=== PATIENT | female | born 2000 | race American Indian/Alaskan Native ===

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

== ENCOUNTER 2021-03-11 14:22 | Emergency (ER) | payer OTHER ==
--- NOTE | 2021-03-11 15:28 | Emergency Department Report ---
ED Shortness of Breath HPI - General Chief Complaint: Dyspnea/Respdistress Stated Complaint: LEFT BREAST PAIN/MARYANA Time Seen by Provider: 03/11/21 15:07 Source: patient Mode of arrival: Ambulatory Limitations: No Limitations - History of Present Illness Initial Comments: Patient presents with 1 to 2-week history of shortness of breath. She states that when she lies down, she has shortness of breath. She feels as though she cannot catch her breath. When she is upright, she does not have the symptoms. This only occurs when she lies down. She also states that when she lies down, she feels as though her heart stops beating. This is transient. When she sits up, she feels much better. There has been no cough or congestion. She has had no fevers or chills. There is no vomiting or diarrhea. She has had no recent travel. Patient denies pain or swelling in the legs. There has been no known exposure to coronavirus. Because of the symptoms, she came here for evaluation and treatment. She is never had lung issues before - Related Data Previous Rx's Medication Instructions Recorded Last Taken Type Ibuprofen [Motrin 800 MG tab] 800 mg PO Q8HR PRN #30 tablet 08/31/20 Unknown Rx Albuterol Sulfate [Proair 90 mcg IH QID #1 aer.pow.ba 03/11/21 Unknown Rx Respiclick] Allergies Allergy/AdvReac Type Severity Reaction Status Date / Time No Known Allergies Allergy Verified 03/11/21 14:25 ED Review of Systems ROS: Stated complaint: LEFT BREAST PAIN/MARYANA Other details as noted in HPI Comment: All other systems reviewed and negative Constitutional: denies: fever Eyes: denies: vision change ENT: denies: throat pain Respiratory: denies: cough Cardiovascular: as per HPI Endocrine: denies: unexplained weight loss Gastrointestinal: denies: abdominal pain Genitourinary: denies: dysuria Musculoskeletal: denies: back pain Skin: denies: rash Neurological: denies: headache Hematological/Lymphatic: denies: easy bruising ED Past Medical Hx - Past Medical History Hx Hypertension: Yes Additional medical history: HEART MUMUR - Family History Family history: hypertension - Social History Smoking Status: Never Smoker - Medications Home Medications: Home Medications Medication Instructions Recorded Confirmed Last Taken Type Ibuprofen [Motrin 800 MG tab] 800 mg PO Q8HR PRN #30 tablet 08/31/20 03/11/21 Unknown Rx Albuterol Sulfate [Proair 90 mcg IH QID #1 aer.pow.ba 03/11/21 Unknown Rx Respiclick] ED Physical Exam - General Limitations: No Limitations, Other ( pulse ox was noted and normal) General appearance: alert, in no apparent distress - Head Head exam: Present: atraumatic, normocephalic, normal inspection - Eye Eye exam: Present: normal appearance, EOMI. Absent: scleral icterus - ENT ENT exam: Present: normal exam, normal orophraynx, normal external ear exam - Neck Neck exam: Present: normal inspection. Absent: meningismus - Respiratory Respiratory exam: Present: normal lung sounds bilaterally. Absent: respiratory distress - Cardiovascular Cardiovascular Exam: Present: regular rate, normal rhythm - GI/Abdominal GI/Abdominal exam: Present: soft. Absent: tenderness - Extremities Exam Extremities exam: Present: normal capillary refill. Absent: pedal edema, calf tenderness - Back Exam Back exam: Absent: CVA tenderness (R), CVA tenderness (L) - Neurological Exam Neurological exam: Present: alert, oriented X3, CN II-XII intact, normal gait. Absent: motor sensory deficit - Psychiatric Psychiatric exam: Present: normal affect, normal mood - Skin Skin exam: Present: warm, dry ED Course Vital Signs 03/11/21 03/11/21 03/11/21 14:24 17:17 17:18 Temperature 98.0 F 98.4 F Pulse Rate 71 66 Respiratory 18 12 12 Rate Blood Pressure 115/61 Blood Pressure 118/71 [Right] O2 Sat by Pulse 97 100 100 Oximetry - Reevaluation(s) Reevaluation #1: 03/11/21 15:28 EKG and chest x-ray were ordered. All records reviewed. Reevaluation #2: 03/11/21 17:21 Chest x-ray was noted. Patient was discharged. ED Medical Decision Making - Radiology Data Radiology results: report reviewed - Medical Decision Making Patient presents with orthopnea. She does not have evidence of CHF. There is no evidence of dyspnea at this time. Patient radiographically does not have pneumonia or coronavirus. There is no evidence of pulmonary edema. She does not have cardiomegaly. Etiology for her shortness of breath is not known. Regardless, she does not need admission. I am not concerned that this is a pulmonary embolism as this only occurs with the supine position. She was given inhaler to use symptomatically and referred to a PCP for recheck. Critical Care Time: No Critical care attestation.: If time is entered above; I have spent that time in minutes in the direct care of this critically ill patient, excluding procedure time. ED Disposition Clinical Impression: Shortness of breath Disposition: HOME / SELF CARE / HOMELESS Is pt being admited?: No Condition: Stable Instructions: Shortness of Breath, Adult, [id number] Additional Instructions: Use the inhaler. Drink plenty water. Return for problems. Follow-up with a regular doctor. If you do not have a primary physician, follow-up with the referral physician. Avoid cigarettes and other forms of smoking. Prescriptions: Albuterol Sulfate [Proair Respiclick] 90 mcg IH QID #1 aer.pow.ba Referrals: PRIMARY CAREMD [Referring] - 3-5 Days LOUISE RENDON MD [Staff Physician] - 3-5 Days
--- NOTE | 2021-03-11 16:10 | XRay Report ---
CHEST 2 VIEWS INDICATION / CLINICAL INFORMATION: sob. COMPARISON: 08/31/2020 FINDINGS: SUPPORT DEVICES: None. HEART / MEDIASTINUM: No significant abnormality. LUNGS / PLEURA: No significant pulmonary or pleural abnormality. No pneumothorax. ADDITIONAL FINDINGS: No significant additional findings. IMPRESSION: 1. No acute findings. Signer Name: Dat Jhaveri MD Signed: 03/11/2021 4:05 PM Workstation Name: [id number]
[2021-03-11 17:18] VITALS: BP 118/71
== END 2021-03-11 18:24 | disposition home or self-care (01) ==
LOC: MERGE 14:22 → ED 14:22
DX: R06.02 Shortness of breath (principal); I10 Essential (primary) hypertension
CPT/HCPCS: 71046; 99283

== ENCOUNTER 2021-03-26 14:29 | Emergency (ER) | payer OTHER | END 2021-03-26 19:00 | LOC: ED 14:29 | DX: R07.9 Chest pain, unspecified (principal); Z53.21 Procedure and treatment not carried out due to patient leaving prior to being seen by health care provider ==

== ENCOUNTER 2021-04-01 21:46 | Emergency (ER) | payer OTHER ==
[2021-04-01 22:57] VITALS: BP 148/76
--- NOTE | 2021-04-01 23:36 | XRay Report ---
CHEST 1 VIEW 04/01/2021 11:27 PM INDICATION / CLINICAL INFORMATION: DYSPNEA. COMPARISON: 03/11/21 FINDINGS: SUPPORT DEVICES: None. HEART / MEDIASTINUM: No significant abnormality. LUNGS / PLEURA: No significant pulmonary or pleural abnormality. No pneumothorax. ADDITIONAL FINDINGS: No significant additional findings. IMPRESSION: 1. No acute findings. No change. Signer Name: Nik Carter MD Signed: 04/01/2021 11:32 PM Workstation Name: [id number]
[2021-04-01 23:37] LABS: Basophils % (Auto) 0.4 % (0.0-1.8); Eosinophils # (Auto) 0.1 K/mm3 (0.0-0.4); Eosinophils % (Auto) 0.6 % (0.0-4.3); Hematocrit 38.6 % (30.3-42.9); Hemoglobin 12.5 gm/dl (10.1-14.3); Lymphocytes % (Auto) 34.6 % (13.4-35.0); Mean Corpuscular HGB Conc 32 % (30-34); Mean Corpuscular Volume 83 fl (79-97); Monocytes # (Auto) 0.5 K/mm3 (0.0-0.8); Monocytes % (Auto) 5.6 % (0.0-7.3); Platelet Count 315 K/mm3 (140-440); Red Blood Count 4.68 M/mm3 (3.65-5.03); Red Cell Distribution Width 13.7 % (13.2-15.2)
[2021-04-02 00:05] LABS: Alanine Aminotransferase 9 units/L (7-56); Albumin 4.4 g/dL (3.9-5); BUN/Creatinine Ratio 19; Blood Urea Nitrogen 15 mg/dL (7-17); Calcium 9.8 mg/dL (8.4-10.2); Hemolysis Index 6
--- NOTE | 2021-04-02 01:17 | Emergency Department Report ---
ED General Adult HPI - General Chief complaint: Dyspnea/Respdistress Stated complaint: LOSS OF APPETITE/ISSUES BREATHING Source: patient Mode of arrival: Ambulatory Limitations: No Limitations - History of Present Illness Initial comments: Patient is a nulliparous 20-year-old -Citizen Of [place] female with a history of chronic anxiety who presents to the ED with complaint of acute onset persistent intermittent shortness of breath, palpitations and generalized fatigue and lack of appetite for the last 1 week. Patient states that she just lost her father who about 7 days ago and since this happened she has had no appetite, and her symptoms have been worsening. Patient denies dizziness, syncope, chest pain, abdominal pain, nausea and vomiting, insomnia, anhedonia, suicidal or homicidal ideations, cough, fever and chills. MD Complaint: shortness of breath; chest tightness -: Sudden, days(s) (5) Location: chest Radiation: non-radiation Severity scale (0 -10): 0 Quality: dull Improves with: none Worsens with: none Associated Symptoms: denies other symptoms, shortness of breath. denies: confusion, chest pain, cough, diaphoresis, fever/chills, headaches, loss of appetite, malaise, nausea/vomiting, rash, syncope, weakness Treatments Prior to Arrival: none - Related Data Previous Rx's Medication Instructions Recorded Last Taken Type Naproxen [Naprosyn] 375 mg PO BID #7 tablet 07/05/20 Unknown Rx hydrOXYzine PAMOATE [Vistaril] 25 mg PO Q6HR PRN #30 capsule 04/02/21 Unknown Rx Allergies Allergy/AdvReac Type Severity Reaction Status Date / Time No Known Allergies Allergy Unverified 08/20/17 13:46 ED Review of Systems ROS: Stated complaint: LOSS OF APPETITE/ISSUES BREATHING Other details as noted in HPI Constitutional: denies: chills, fever Eyes: denies: eye pain, eye discharge, vision change ENT: denies: ear pain, throat pain Respiratory: shortness of breath. denies: cough, wheezing Cardiovascular: denies: chest pain, palpitations Endocrine: no symptoms reported Gastrointestinal: denies: abdominal pain, nausea, vomiting, diarrhea Genitourinary: denies: urgency, dysuria, discharge Musculoskeletal: denies: back pain, joint swelling, arthralgia Skin: denies: rash, lesions Neurological: denies: headache, weakness, paresthesias Psychiatric: anxiety. 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 - Surgical History Past Surgical History?: Yes Additional Surgical History: Lt knee - Social History Smoking Status: Current Every Day Smoker Substance Use Type: Alcohol, Marijuana - Medications Home Medications: Home Medications Medication Instructions Recorded Confirmed Last Taken Type Naproxen [Naprosyn] 375 mg PO BID #7 tablet 07/05/20 Unknown Rx hydrOXYzine PAMOATE [Vistaril] 25 mg PO Q6HR PRN #30 capsule 04/02/21 Unknown Rx ED Physical Exam - General Limitations: No Limitations General appearance: alert, in no apparent distress - Head Head exam: Present: atraumatic, normocephalic, normal inspection - Eye Eye exam: Present: normal appearance, PERRL, EOMI Pupils: Present: normal accommodation - ENT ENT exam: Present: normal exam, normal orophraynx, mucous membranes moist, TM's normal bilaterally, normal external ear exam - Neck Neck exam: Present: normal inspection, full ROM - Respiratory Respiratory exam: Present: normal lung sounds bilaterally. Absent: respiratory distress, wheezes, rales, rhonchi, chest wall tenderness, accessory muscle use, decreased breath sounds, prolonged expiratory - Cardiovascular Cardiovascular Exam: Present: regular rate, normal rhythm, normal heart sounds. Absent: systolic murmur, diastolic murmur, rubs, gallop - GI/Abdominal GI/Abdominal exam: Present: soft, normal bowel sounds. Absent: tenderness, guarding, rebound, hyperactive bowel sounds, hypoactive bowel sounds - Extremities Exam Extremities exam: Present: normal inspection, full ROM, normal capillary refill - Back Exam Back exam: Present: normal inspection, full ROM. Absent: tenderness, CVA tenderness (R), CVA tenderness (L), muscle spasm, paraspinal tenderness - Neurological Exam Neurological exam: Present: alert, oriented X3, CN II-XII intact, normal gait, reflexes normal - Psychiatric Psychiatric exam: Present: normal affect, normal mood - Skin Skin exam: Present: warm, dry, intact, normal color. Absent: rash ED Course Vital Signs 04/01/21 22:53 Temperature 98.7 F Pulse Rate 84 Respiratory 16 Rate Blood Pressure 148/76 [Right] O2 Sat by Pulse 100 Oximetry ED Medical Decision Making - Lab Data Result diagrams: 04/01/21 23:15 04/01/21 23:15 - Radiology Data Radiology results: report reviewed, image reviewed [facility] [address] [place] [address] XRay Report Signed Patient: PINKY GÓMEZ MR#: [id number] 9 : 2000 Acct:[id number] Age/Sex: 20 / F ADM Date: 04/01/21 Loc: ED Attending Dr: Ordering Physician: JONO BLISS Date of Service: 04/01/21 Procedure(s): XR chest 1V ap Accession Number(s): [id number] cc: JONO BLISS Fluoro Time In Minutes: CHEST 1 VIEW 04/01/2021 11:27 PM INDICATION / CLINICAL INFORMATION: DYSPNEA. COMPARISON: 03/11/21 FINDINGS: SUPPORT DEVICES: None. HEART / MEDIASTINUM: No significant abnormality. LUNGS / PLEURA: No significant pulmonary or pleural abnormality. No pneumothorax. ADDITIONAL FINDINGS: No significant additional findings. IMPRESSION: 1. No acute findings. No change. Signer Name: Nik Carter MD Signed: 04/01/2021 11:32 PM Workstation Name: [id number] Transcribed By: DT Dictated By: Philippe Carter MD Electronically Authenticated By: Philippe Carter MD Signed Date/Time: 04/01/212331 DD/ 31 TD/TT: - Medical Decision Making This is a nulliparous 20-year-old -Citizen Of [place] female with a history of chronic anxiety who presents to the ED with complaint of acute onset persistent intermittent shortness of breath, palpitations and generalized fatigue and lack of appetite for the last 1 week. Patient states that she just lost her father who about 7 days ago and since this happened she has had no appetite, and her symptoms have been worsening. In the ED, patient is alert and oriented x3 and is not in any distress. Patient is hemodynamically stable. Chest x-ray showed no acute cardiopulmonary abnormalities or pneumonitis. Lab test results were reviewed and are all nonactionable. Based on the history and physical exam findings, the patient symptoms are likely due to anxiety following the tragic of her parent. Patient was therefore discharged home on a prescription of Vistaril 25 mg every 8 hours as needed for anxiety and was advised to follow-up with her primary care physician in 5 to 7 days for reevaluation or return to the ED immediately if symptoms get worse. - Differential Diagnosis anxiety; pneumonia; bronchitis; ACS; PE; Critical care attestation.: If time is entered above; I have spent that time in minutes in the direct care of this critically ill patient, excluding procedure time. ED Disposition Clinical Impression: Shortness of breath, Anxiety as acute reaction to exceptional stress Disposition: HOME / SELF CARE / HOMELESS Is pt being admited?: No Does the pt Need Aspirin: No Condition: Stable Instructions: Generalized Anxiety Disorder, Adult, Shortness of Breath, Adult, [id number] Additional Instructions: All lab test results were reviewed and are all nonactionable. Therefore take medications for anxiety as advised, drink plenty of fluids and follow-up with your primary care physician in 5 to 7 days for reevaluation. Return to the ED immediately if symptoms get worse. Prescriptions: hydrOXYzine PAMOATE [Vistaril] 25 mg PO Q6HR PRN #30 capsule PRN Reason: Anxiety Referrals: [facility] [Provider Group] - 3-5 Days Time of Disposition: 01:16 Print Language: LITHUANIAN
== END 2021-04-02 02:00 | disposition home or self-care (01) ==
LOC: ED 21:46
DX: F41.1 Generalized anxiety disorder (principal); F43.0 Acute stress reaction; R06.02 Shortness of breath; I10 Essential (primary) hypertension; E11.9 Type 2 diabetes mellitus without complications; F17.200 Nicotine dependence, unspecified, uncomplicated
CPT/HCPCS: 36415; 71045; 80053; 84443; 84484; 85025

== ENCOUNTER 2021-04-03 01:03 | Emergency (ER) | payer OTHER ==
[2021-04-03 02:38] LABS: Basophils # (Auto) 0.1 K/mm3 (0.0-0.1); Basophils % (Auto) 0.7 % (0.0-1.8); Eosinophils # (Auto) 0.1 K/mm3 (0.0-0.4); Eosinophils % (Auto) 0.8 % (0.0-4.3); Hematocrit 39.2 % (30.3-42.9); Hemoglobin 12.4 gm/dl (10.1-14.3); Lymphocytes # (Auto) 3.3 K/mm3 (1.2-5.4); Lymphocytes % (Auto) 41.8 % (13.4-35.0); Mean Corpuscular HGB Conc 32 % (30-34); Mean Corpuscular Volume 82 fl (79-97); Monocytes # (Auto) 0.5 K/mm3 (0.0-0.8); Monocytes % (Auto) 6.7 % (0.0-7.3); Platelet Count 311 K/mm3 (140-440); Red Cell Distribution Width 13.9 % (13.2-15.2)
--- NOTE | 2021-04-03 02:58 | XRay Report ---
CHEST 2 VIEWS INDICATION / CLINICAL INFORMATION: chest pain. COMPARISON: 04/01/21 FINDINGS: SUPPORT DEVICES: None. HEART / MEDIASTINUM: No significant abnormality. LUNGS / PLEURA: No significant pulmonary or pleural abnormality. No pneumothorax. ADDITIONAL FINDINGS: No significant additional findings. IMPRESSION: 1. No acute findings. No change. Signer Name: Nik Carter MD Signed: 04/03/2021 2:54 AM Workstation Name: [id number]
--- NOTE | 2021-04-03 03:27 | Emergency Department Report ---
ED General Adult HPI - General Chief complaint: Arrhythmia/Palpitations Stated complaint: NOT SLEEPING HEART PALPATATIONS HBP Time Seen by Provider: 04/03/21 01:57 Source: patient Mode of arrival: Ambulatory Limitations: No Limitations - History of Present Illness Initial comments: 20-year-old -[place] female patient presents with complaints of intermittent palpitations x8 days. Patient states the palpitations began the same day her father from colon cancer. She reports they seem to worsen at night when lying down and that she is unable to sleep. She describes the palpitations as her heart racing and beating irregularly. She reports past medical history of hypertension, but denies any other medical issues. No family history of heart disease per patient. She denies any chest pain, shortness of breath, cough, leg pain/swelling, hormone use, hemoptysis, history of DVT/PEs, or recent long travel/surgeries. No palpitations at this time per patient. She states this is happened in the past before when her aunt . She has not been diagnosed with anxiety per patient. Severity scale (0 -10): 2 - Related Data Previous Rx's Medication Instructions Recorded Last Taken Type Naproxen [Naprosyn] 375 mg PO BID #7 tablet 07/05/20 Unknown Rx hydrOXYzine PAMOATE [Vistaril] 25 mg PO Q6HR PRN #30 capsule 04/02/21 Unknown Rx hydrOXYzine PAMOATE [Vistaril] 25 - 50 mg PO QHS PRN #20 capsule 04/03/21 Unknown Rx Allergies Allergy/AdvReac Type Severity Reaction Status Date / Time No Known Allergies Allergy Unverified 08/20/17 13:46 ED Review of Systems ROS: Stated complaint: NOT SLEEPING HEART PALPATATIONS HBP Other details as noted in HPI Constitutional: denies: chills, fever, malaise Respiratory: denies: cough, shortness of breath Cardiovascular: palpitations. 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 - Surgical History Past Surgical History?: Yes Additional Surgical History: Lt knee - Social History Smoking Status: Current Every Day Smoker Substance Use Type: Alcohol, Marijuana - Medications Home Medications: Home Medications Medication Instructions Recorded Confirmed Last Taken Type Naproxen [Naprosyn] 375 mg PO BID #7 tablet 07/05/20 Unknown Rx hydrOXYzine PAMOATE [Vistaril] 25 mg PO Q6HR PRN #30 capsule 04/02/21 Unknown Rx hydrOXYzine PAMOATE [Vistaril] 25 - 50 mg PO QHS PRN #20 capsule 04/03/21 Unknown Rx ED Physical Exam - General Limitations: No Limitations General appearance: alert, in no apparent distress - Head Head exam: Present: atraumatic, normocephalic - Eye Eye exam: Present: normal appearance. Absent: scleral icterus - Neck Neck exam: Present: normal inspection - Respiratory Respiratory exam: Present: normal lung sounds bilaterally. Absent: respiratory distress, chest wall tenderness - Cardiovascular Cardiovascular Exam: Present: regular rate, normal rhythm. Absent: systolic murmur, diastolic murmur, rubs, gallop - Extremities Exam Extremities exam: Absent: calf tenderness (No swelling or pain noted to lower extremities bilaterally) - Neurological Exam Neurological exam: Present: alert, oriented X3 - Psychiatric Psychiatric exam: Present: normal affect, normal mood - Skin Skin exam: Present: warm, dry, intact, normal color. Absent: rash ED Course Vital Signs 04/03/21 04/03/21 04/03/21 01:09 01:10 03:44 Temperature 98.7 F 98.7 F Pulse Rate 73 90 76 Respiratory 16 16 Rate Blood Pressure 135/82 127/78 Blood Pressure 135/82 [Left] O2 Sat by Pulse 99 100 Oximetry 04/03/21 04/03/21 04:13 04:15 Temperature Pulse Rate 74 Respiratory Rate Blood Pressure 120/88 Blood Pressure [Left] O2 Sat by Pulse 100 Oximetry ED Medical Decision Making - Lab Data Result diagrams: 04/03/21 02:00 04/03/21 Unknown Lab Results 04/03/21 04/03/21 04/03/21 Range/Units 02:00 02:00 02:00 WBC 8.0 (4.5-11.0) K/mm3 RBC 4.80 (3.65-5.03) M/mm3 Hgb 12.4 (10.1-14.3) gm/dl Hct 39.2 (30.3-42.9) % MCV 82 (79-97) fl MCH 26 L (28-32) pg MCHC 32 (30-34) % RDW 13.9 (13.2-15.2) % Plt Count 311 (140-440) K/mm3 Lymph % (Auto) 41.8 H (13.4-35.0) % Coffee % (Auto) 6.7 (0.0-7.3) % Eos % (Auto) 0.8 (0.0-4.3) % Baso % (Auto) 0.7 (0.0-1.8) % Lymph # (Auto) 3.3 (1.2-5.4) K/mm3 Coffee # (Auto) 0.5 (0.0-0.8) K/mm3 Eos # (Auto) 0.1 (0.0-0.4) K/mm3 Baso # (Auto) 0.1 (0.0-0.1) K/mm3 Seg Neutrophils % 50.0 (40.0-70.0) % Seg Neutrophils # 4.0 (1.8-7.7) K/mm3 Sodium (137-145) mmol/L Potassium (3.6-5.0) mmol/L Chloride (98-107) mmol/L Carbon Dioxide (22-30) mmol/L Anion Gap mmol/L BUN (7-17) mg/dL Creatinine (0.6-1.2) mg/dL Estimated GFR ml/min BUN/Creatinine Ratio % Glucose (65-100) mg/dL Calcium (8.4-10.2) mg/dL Troponin T < 0.010 (0.00-0.029) ng/mL HCG, Qual Negative (Negative) 04/03/21 Range/Units Unknown WBC (4.5-11.0) K/mm3 RBC (3.65-5.03) M/mm3 Hgb (10.1-14.3) gm/dl Hct (30.3-42.9) % MCV (79-97) fl MCH (28-32) pg MCHC (30-34) % RDW (13.2-15.2) % Plt Count (140-440) K/mm3 Lymph % (Auto) (13.4-35.0) % Coffee % (Auto) (0.0-7.3) % Eos % (Auto) (0.0-4.3) % Baso % (Auto) (0.0-1.8) % Lymph # (Auto) (1.2-5.4) K/mm3 Coffee # (Auto) (0.0-0.8) K/mm3 Eos # (Auto) (0.0-0.4) K/mm3 Baso # (Auto) (0.0-0.1) K/mm3 Seg Neutrophils % (40.0-70.0) % Seg Neutrophils # (1.8-7.7) K/mm3 Sodium 135 L (137-145) mmol/L Potassium 4.0 (3.6-5.0) mmol/L Chloride 101.4 (98-107) mmol/L Carbon Dioxide 21 L (22-30) mmol/L Anion Gap 17 mmol/L BUN 18 H (7-17) mg/dL Creatinine 0.8 (0.6-1.2) mg/dL Estimated GFR > 60 ml/min BUN/Creatinine Ratio 23 % Glucose 93 (65-100) mg/dL Calcium 9.9 (8.4-10.2) mg/dL Troponin T (0.00-0.029) ng/mL HCG, Qual (Negative) - Radiology Data Radiology results: report reviewed CHEST 2 VIEWS INDICATION / CLINICAL INFORMATION: chest pain. COMPARISON: 04/01/21 FINDINGS: SUPPORT DEVICES: None. HEART / MEDIASTINUM: No significant abnormality. LUNGS / PLEURA: No significant pulmonary or pleural abnormality. No pneumothorax. ADDITIONAL FINDINGS: No significant additional findings. IMPRESSION: 1. No acute findings. No change. - Medical Decision Making 20-year-old -[place] female patient presents with complaints of intermittent palpitations x8 days. Patient states the palpitations began the same day her father from colon cancer. She reports they seem to worsen at night when lying down and that she is unable to sleep. She describes the palpitations as her heart racing and beating irregularly. She reports past medical history of hypertension, but denies any other medical issues. No family history of heart disease per patient. She denies any chest pain, shortness of breath, cough, leg pain/swelling, hormone use, hemoptysis, history of DVT/PEs, or recent long travel/surgeries. No palpitations at this time per patient. She states this is happened in the past before when her aunt . She has not been diagnosed with anxiety per patient. No acute abnormalities on CBC, chest x-ray, or EKG. CMP shows some dehydration - discussed importance of fluid resuscitation with water and Pedialyte with patient. Given history, symptoms possibly are due to anxiety with recent passing of her father. Will try anxiolytic medication at night as needed and have patient follow-up with her PCP for further evaluation within 3 to 5 days. Patient states she does currently follow with the PCP. She is well-appearing, her vitals are within normal limits, she is stable for discharge home. Discussed in detail signs and symptoms that should prompt immediate return to the emergency department with patient who verbalizes understanding. Critical care attestation.: If time is entered above; I have spent that time in minutes in the direct care of this critically ill patient, excluding procedure time. ED Disposition Clinical Impression: Palpitations, Dehydration Disposition: 01 HOME / SELF CARE / HOMELESS Is pt being admited?: No Condition: Stable Instructions: Premature Ventricular Contraction, Dehydration, Adult, Nstd-[id number], Palpitations, [id number] Prescriptions: hydrOXYzine PAMOATE [Vistaril] 25 - 50 mg PO QHS PRN #20 capsule PRN Reason: Anxiety Referrals: PRIMARY CARE, [Primary Care Provider] - 3-5 Days Forms: Work/School Release Form(ED)
[2021-04-03 03:46] LABS: BUN/Creatinine Ratio 23; Blood Urea Nitrogen 18 mg/dL (7-17); Calcium 9.9 mg/dL (8.4-10.2); Hemolysis Index 2
[2021-04-03 04:20] VITALS: BP 120/88
--- NOTE | 2021-04-03 11:28 | Electrocardiograph Report ---
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
== END 2021-04-03 04:20 | disposition home or self-care (01) ==
LOC: ED 01:03
DX: R00.2 Palpitations (principal); E86.0 Dehydration; F17.200 Nicotine dependence, unspecified, uncomplicated; F10.20 Alcohol dependence, uncomplicated; F12.90 Cannabis use, unspecified, uncomplicated; I10 Essential (primary) hypertension; E11.8 Type 2 diabetes mellitus with unspecified complications
CPT/HCPCS: 36415; 71046; 80048; 84484; 84703; 85025; 93005; 99283

== ENCOUNTER 2021-04-03 21:56 | Emergency (ER) | payer OTHER ==
[2021-04-03 23:05] VITALS: BP 135/82
--- NOTE | 2021-04-04 01:43 | Emergency Department Report ---
HPI - General Chief Complaint: Abdominal Pain Time Seen by Provider: 04/04/21 01:34 - HPI HPI: 20-year-old -[place] female presents to the emergency department with a complaint of a 2-day history of middle to upper abdominal pain, nausea without v omiting, decreased appetite, and early satiety. The patient was seen here yesterday with a complaint of a few days of palpitations since the passing of her father. She had a negative work-up including CBC, CMP and was diagnosed with some mild dehydration. Patient says that she has been drinking water constantly throughout the day. At that time she had said that the palpitations had been keeping her from getting sleep at night. Today she tells me that it is the current symptoms that have been keeping her from sleeping. She has a past medical history of hypertension. She follows with a primary care physician, Dr. Magy Cobb, but has not seen them regarding the symptoms. No recent travel or sick contacts at home. ED Past Medical Hx - Past Medical History Hx Hypertension: Yes Hx Diabetes: Yes Additional medical history: meth use. heart murmur - Surgical History Additional Surgical History: Lt knee - Social History Smoking Status: Current Every Day Smoker Substance Use Type: Alcohol, Marijuana - Medications Home Medications: Home Medications Medication Instructions Recorded Confirmed Last Taken Type Naproxen [Naprosyn] 375 mg PO BID #7 tablet 07/05/20 Unknown Rx hydrOXYzine PAMOATE [Vistaril] 25 mg PO Q6HR PRN #30 capsule 04/02/21 Unknown Rx hydrOXYzine PAMOATE [Vistaril] 25 - 50 mg PO QHS PRN #20 capsule 04/03/21 Unknown Rx Dicyclomine [Bentyl] 10 mg PO QID PRN #20 capsule 04/04/21 Unknown Rx ED Review of Systems ROS: Stated complaint: AB PAIN Other details as noted in HPI Comment: All other systems reviewed and negative Constitutional: denies: chills, fever Eyes: denies: eye pain, vision change ENT: denies: ear pain, throat pain Respiratory: denies: cough, shortness of breath Cardiovascular: denies: chest pain, edema Gastrointestinal: abdominal pain. denies: vomiting Genitourinary: denies: dysuria, hematuria Musculoskeletal: denies: back pain, arthralgia Skin: denies: rash, lesions Neurological: denies: headache, weakness Physical Exam - Physical Exam Vital Signs: Vital Signs 04/03/21 23:03 Temperature 98.2 F Pulse Rate 86 Respiratory 17 Rate Blood Pressure 135/82 [Right] O2 Sat by Pulse 100 Oximetry Physical Exam: GENERAL: The patient is well-developed well-nourished. HENT: Normocephalic. Atraumatic. Patient has moist mucous membranes. EYES: Extraocular motions are intact. NECK: Supple. Trachea is midline. CHEST/LUNGS: Clear to auscultation. There is no respiratory distress noted. HEART/CARDIOVASCULAR: Regular. There is no tachycardia. There is no murmur. ABDOMEN: Abdomen is soft. There is some upper abdominal tenderness to palpation. No guarding. Patient has normal bowel sounds. There is no abdominal distention. SKIN: Skin is warm and dry. NEURO: The patient is awake, alert, and oriented. The patient is cooperative. Normal speech. MUSCULOSKELETAL: There is no tenderness or deformity. There is no limitation range of motion. ED Course Vital Signs 04/03/21 23:03 Temperature 98.2 F Pulse Rate 86 Respiratory 17 Rate Blood Pressure 135/82 [Right] O2 Sat by Pulse 100 Oximetry ED Medical Decision Making - Lab Data Result diagrams: 04/04/21 02:38 Lab Results 04/04/21 04/04/21 04/04/21 Range/Units 02:38 02:38 Unknown Sodium 137 (137-145) mmol/L Potassium 3.9 (3.6-5.0) mmol/L Chloride 101.7 (98-107) mmol/L Carbon Dioxide 23 (22-30) mmol/L Anion Gap 16 mmol/L BUN 12 (7-17) mg/dL Creatinine 0.8 (0.6-1.2) mg/dL Estimated GFR > 60 ml/min BUN/Creatinine Ratio 15 % Glucose 79 (65-100) mg/dL Calcium 9.2 (8.4-10.2) mg/dL Total Bilirubin 0.60 (0.1-1.2) mg/dL AST 17 (5-40) units/L ALT 9 (7-56) units/L Alkaline Phosphatase 75 (35-129) units/L Total Protein 7.3 (6.3-8.2) g/dL Albumin 4.4 (3.9-5) g/dL Albumin/Globulin Ratio 1.5 % Lipase 26 (13-60) units/L Urine Color Yellow (Yellow) Urine Turbidity Clear (Clear) Urine pH 7.0 (5.0-7.0) Ur Specific [place] 1.010 (1.003-1.030) Urine Protein <15 mg/dl (Negative) mg/dL Urine Glucose (UA) Neg (Negative) mg/dL Urine Ketones Neg (Negative) mg/dL Urine Blood Neg (Negative) Urine Nitrite Neg (Negative) Urine Bilirubin Neg (Negative) Urine Urobilinogen 2.0 (<2.0) mg/dL Ur Leukocyte Esterase Neg (Negative) Urine WBC (Auto) 2.0 (0.0-6.0) /HPF Urine RBC (Auto) 1.0 (0.0-6.0) /HPF U Epithel Cells (Auto) 7.0 (0-13.0) /HPF - Radiology Data Radiology results: report reviewed, image reviewed interpreted by me: Abdominal x-ray shows nonspecific nonobstructive bowel gas. No free air. Chest x-ray does not show any acute process. There are no pleural effusions, obvious pneumonia and there is no pneumothorax. No widened mediastinum. ULTRASOUND ABDOMEN, LIMITED INDICATION / CLINICAL INFORMATION: Abd pain. COMPARISON: None available. FINDINGS: PANCREAS: Visualized portion shows no significant abnormality. LIVER: No significant abnormality. GALLBLADDER: Sli ghtly contracted. No stones or wall thickening. BILE DUCTS: No significant abnormality. Common bile duct measures 2.3 mm. FREE FLUID: None. ADDITIONAL FINDINGS: Visualized portions of right kidney appear normal. IMPRESSION: 1. No significant sonographic abnormality of the right upper quadrant. - Medical Decision Making This patient presents with a 2-day history of some upper abdominal pain. She has some decreased appetite and complains of the inability to sleep at night. There is some reproducible upper abdominal tenderness to palpation, but no guarding. The abdomen is soft, nondistended and nontoxic in appearance. Abdominal x-ray shows nonspecific nonobstructive bowel gas and no free air. Labs have been unremarkable including CMP, lipase and urinalysis. The patient was given some Bentyl and Zofran. She still complained of moderate abdominal pain so an ultrasound was done that did not show any evidence of cholelithiasis, cholecystitis, pancreatitis, or any other acute process in the right upper quadrant. Vital signs have been reassuring including being afebrile. The patient appears safe for discharge home at this time. She has good outpatient follow-up with primary care and has been given a referral for [facility]. She will return to the emergency department with any worsening of her symptoms or with any acute distress. Critical Care Time: No Critical care attestation.: If time is entered above; I have spent that time in minutes in the direct care of this critically ill patient, excluding procedure time. ED Disposition Clinical Impression: Decreased appetite Abdominal pain Qualifiers: Abdominal location: unspecified location Qualified Code(s): R10.9 - Unspecified abdominal pain Disposition: HOME / SELF CARE / HOMELESS Is pt being admited?: No Condition: Stable Instructions: Abdominal Pain (ED), Abdominal Pain, Adult Additional Instructions: Please follow-up with your primary care physician in the next few days. I have also given you a referral for a local gastroenterology group, [facility], to follow-up regarding your abdominal pains. Return to the emergency department with any worsening of your symptoms, new or concerning symptoms not addressed during this current emergency department visit, or with any acute distress. Prescriptions: Dicyclomine [Bentyl] 10 mg PO QID PRN #20 capsule PRN Reason: Pain , Severe (7-10) Referrals: PRIMARY CARE, [Primary Care Provider] - 3-5 Days [facility] [Provider Group] - 3-5 Days Time of Disposition: 05:44
--- NOTE | 2021-04-04 02:17 | XRay Report ---
ABDOMEN 3 VIEW(S) INDICATION / CLINICAL INFORMATION: Abd pain. COMPARISON: None available. FINDINGS: TUBES / LINES: None. BOWEL GAS PATTERN: No significant abnormality. FREE AIR / EXTRALUMINAL GAS: None seen. ADDITIONAL FINDINGS: No calcified urinary tract stones. Several calcified left pelvic phleboliths. CHEST: Visualized chest shows no significant abnormality. IMPRESSION: 1. No acute findings. Signer Name: Nik Carter MD Signed: 04/04/2021 2:12 AM Workstation Name: [id number]
[2021-04-04 02:41] LABS: Bilirubin,Urine NEG (Negative); Blood,Urine NEG (Negative); Color,Urine Yellow (Yellow); Protein,Urine <15 mg/dL mg/dL (Negative)
[2021-04-04] MEDS ORDERED: DICYCLOMINE 20 MG TAB PO ONE (03:12)
[2021-04-04] MEDS ORDERED: ONDANSETRON 4 MG ODT TAB PO ONE (03:12)
[2021-04-04 03:33] LABS: Alanine Aminotransferase 9 units/L (7-56); Albumin 4.4 g/dL (3.9-5); BUN/Creatinine Ratio 15; Blood Urea Nitrogen 12 mg/dL (7-17); Calcium 9.2 mg/dL (8.4-10.2); Hemolysis Index 5
--- NOTE | 2021-04-04 05:41 | Ultrasound Report ---
ULTRASOUND ABDOMEN, LIMITED INDICATION / CLINICAL INFORMATION: Abd pain. COMPARISON: None available. FINDINGS: PANCREAS: Visualized portion shows no significant abnormality. LIVER: No significant abnormality. GALLBLADDER: Slightly contracted. No stones or wall thickening. BILE DUCTS: No significant abnormality. Common bile duct measures 2.3 mm. FREE FLUID: None. ADDITIONAL FINDINGS: Visualized portions of right kidney appear normal. IMPRESSION: 1. No significant sonographic abnormality of the right upper quadrant. Signer Name: Nik Carter MD Signed: 04/04/2021 5:36 AM Workstation Name: [id number]
== END 2021-04-04 06:02 | disposition home or self-care (01) ==
LOC: ED 21:56
DX: R63.8 Other symptoms and signs concerning food and fluid intake (principal); R11.2 Nausea with vomiting, unspecified; I10 Essential (primary) hypertension; E11.9 Type 2 diabetes mellitus without complications; F17.200 Nicotine dependence, unspecified, uncomplicated
CPT/HCPCS: 36415; 71046; 74022; 76705; 80048; 80053; 81001; 83690; 84484; 84703; 85025; 93005; 99283; Q0162

== ENCOUNTER 2021-04-10 14:46 | Emergency (ER) | payer OTHER ==
[2021-04-10 14:51] VITALS: BP 130/67
[2021-04-10 15:30] LABS: Bilirubin,Urine NEG (Negative); Blood,Urine LG (Negative); Color,Urine Yellow (Yellow); Mucus,Urine FEW /HPF; Protein,Urine <15 mg/dL mg/dL (Negative); Urobilinogen,Urine < 2.0 mg/dL (<2.0)
--- NOTE | 2021-04-10 16:16 | Emergency Department Report ---
ED General Adult HPI - General Chief complaint: Urogenital-Female Stated complaint: BLADDER PAIN YEAST INFECTION Time Seen by Provider: 04/10/21 15:04 Source: patient Mode of arrival: Ambulatory Limitations: No Limitations - History of Present Illness Initial comments: 20-year-old -[place] female patient presents with complaints of possible UTI today. She reports that she she took an [id number]-mhildxi urinary tract infection test from [facility] and that it came back positive. Patient denies any hematuria, dysuria, urinary frequency, vaginal discharge/lesions, or dyspareunia. No fever/chills/sweats per patient. This is patient's ninth visit to the ED this month. Patient also states that her cycles have been irregular for months now and is wanting to get an ovulation test - Related Data Allergies Allergy/AdvReac Type Severity Reaction Status Date / Time No Known Allergies Allergy Unverified 04/10/21 14:51 ED Review of Systems ROS: Stated complaint: BLADDER PAIN YEAST INFECTION Other details as noted in HPI Constitutional: denies: chills, fever, malaise Cardiovascular: denies: chest pain Gastrointestinal: denies: abdominal pain Genitourinary: abnormal menses. denies: urgency, dysuria, frequency, hematuria, discharge Skin: denies: change in color Neurological: denies: headache ED Past Medical Hx - Past Medical History Hx Hypertension: Yes Hx Diabetes: Yes Additional medical history: HEART MUMUR - Surgical History Additional Surgical History: Lt knee - Social History Smoking Status: Never Smoker ED Physical Exam - General Limitations: No Limitations General appearance: alert, in no apparent distress - Head Head exam: Present: atraumatic, normocephalic - Eye Eye exam: Present: normal appearance. Absent: scleral icterus - Neck Neck exam: Present: normal inspection - Respiratory Respiratory exam: Absent: normal lung sounds bilaterally - Cardiovascular Cardiovascular Exam: Present: regular rate, normal rhythm - GI/Abdominal GI/Abdominal exam: Present: soft. Absent: tenderness - Neurological Exam Neurological exam: Present: alert, oriented X3 - Psychiatric Psychiatric exam: Present: normal affect, normal mood - Skin Skin exam: Present: warm, dry, intact, normal color. Absent: rash ED Course Vital Signs 04/10/21 14:49 Temperature 98.3 F Pulse Rate 88 Respiratory 18 Rate Blood Pressure 130/67 O2 Sat by Pulse 98 Oximetry ED Medical Decision Making - Medical Decision Making 20-year-old -[place] female patient presents with complaints of possible UTI today. She reports that she she took an txhk-ylb-syiskso urinary tract infection test from [facility] and that it came back positive. Patient denies any hematuria, dysuria, urinary frequency, vaginal discharge/lesions, or dyspareunia. No fever/chills/sweats per patient. This is patient's ninth visit to the ED this month. Patient also states that her cycles have been irregular for months now and is wanting to get an ovulation test UA is normal. She denies any symptoms of STIs. Recommend patient follows up with [facility] for further evaluation and treatment. Suspect patient has a great deal of anxiety and recommend follow-up with PCP for this. She is otherwise well-appearing, her vitals are normal, she is stable for discharge home. Strict return precautions were discussed in detail patient verbalizes understanding Critical care attestation.: If time is entered above; I have spent that time in minutes in the direct care of this critically ill patient, excluding procedure time. ED Disposition Clinical Impression: Abnormal menstrual cycle, Anxiety Disposition: 01 HOME / SELF CARE / HOMELESS Is pt being admited?: No Condition: Stable Instructions: Managing Anxiety, Adult, Metrorrhagia, [id number]-[id number] Additional Instructions: Please follow-up with [facility] for further evaluation of your menstrual cycles. He may follow-up at the health department for STI testing Referrals: [facility] [Provider Group] - 3-5 Days [facility] [Outside] - 3-5 Days
== END 2021-04-10 16:41 | disposition home or self-care (01) ==
LOC: ED 14:46
DX: N92.6 Irregular menstruation, unspecified (principal); F41.9 Anxiety disorder, unspecified; I10 Essential (primary) hypertension; E11.9 Type 2 diabetes mellitus without complications
CPT/HCPCS: 81001; 99283

== ENCOUNTER 2021-05-28 12:39 | Emergency (ER) | payer OTHER ==
[2021-05-28] MEDS ORDERED: SODIUM CHLORIDE 0.9% 1000 ML IV SOLN IV ONE (13:34)
[2021-05-28] MEDS ORDERED: ACETAMINOPHEN 500 MG TAB PO ONE (13:35)
--- NOTE | 2021-05-28 13:54 | Emergency Department Report ---
ED Fever HPI - General Chief Complaint: Arrhythmia/Palpitations Stated Complaint: rapid heart rate Time Seen by Provider: 05/28/21 13:20 Source: patient Exam Limitations: no limitations - History of Present Illness Initial Comments: 20-year-old female [id number] presents to the hospital complaining of fever since last night and palpitations this morning. Patient does have a history of anxiety with recurrent ED visits for palpitations. She states she was diagnosed with diabetes and does not currently take medications. 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 The last 10 to 14 days patient has had yellow vaginal discharge and intermittent lower mid back pain. Patient denies abdominal pain, nausea, vomiting, cough, shortness of breath, or loss of sense of taste or smell. She is vaccinated with Leo & Leo vaccine approximately 2 months ago. She denies dysuria or urinary frequency ED Review of Systems ROS: Stated complaint: rapid heart rate Other details as noted in HPI Comment: All other systems reviewed and negative ED Past Medical Hx - Past Medical History Previous Medical History?: Yes Hx Hypertension: Yes Hx Diabetes: Yes Additional medical history: HEART MUMUR - Surgical History Past Surgical History?: Yes Additional Surgical History: Lt knee - Social History Smoking Status: Never Smoker - Medications Home Medications: Home Medications Medication Instructions Recorded Confirmed Last Taken Type Doxycycline Hyclate [Doxycycline 100 mg PO Q12HR #28 tab 05/28/21 Unknown Rx Hyclate TAB] Ibuprofen [Motrin] 600 mg PO Q8H PRN #20 tablet 05/28/21 Unknown Rx metroNIDAZOLE [Flagyl] 500 mg PO Q12HR #14 tab 05/28/21 Unknown Rx ED Physical Exam - General Limitations: No Limitations - Other Other exam information: General: No acute distress Head: Atraumatic Eyes: normal appearance ENT: Moist mucous membranes Neck: Normal appearance, no midline tenderness Chest: Clear to auscultation bilaterally CV: Regular rate and rhythm Abdomen: Soft, normal bowel sounds, nontender, nondistended, no rebound or guarding : no external or cervical lesion, white vag d/c, no uterine or cervical motion tenderness Back: Normal inspection, no lumbar tenderness Extremity: Normal inspection, full range of motion Neuro: Alert O x 3, no facial asymmetry, speech clear, no gross motor sensory deficit Psych: Appropriate behavior Skin: No rash ED Course Vital Signs 05/28/21 05/28/21 12:42 15:55 Temperature 100.2 F H 99.3 F Pulse Rate 128 H 134 H Respiratory 16 16 Rate Blood Pressure 136/66 126/64 [Left] O2 Sat by Pulse 100 100 Oximetry - Reevaluation(s) Reevaluation #1: 05/28/21 16:07 pt states that she needs to leave prior to completion of her ed treatment. Patient received a call about a family emergency and now needs to leave. Patient heart rate now in the 130s. I suspect that patient does have a component of anxiety however, she cannot be further treated and assessed because she states she needs to leave the department. Patient has not yet received IV Rocephin. Already changed to IM and as just reported to receive his medication prior to discharge for treatment of gonorrhea ED Medical Decision Making - Lab Data Result diagrams: 05/28/21 13:56 05/28/21 13:56 Lab Results 05/28/21 05/28/21 05/28/21 Range/Units 13:56 13:56 13:56 WBC 9.8 (4.5-11.0) K/mm3 RBC 4.95 (3.65-5.03) M/mm3 Hgb 12.7 (10.1-14.3) gm/dl Hct 40.2 (30.3-42.9) % MCV 81 (79-97) fl MCH 26 L (28-32) pg MCHC 32 (30-34) % RDW 13.7 (13.2-15.2) % Plt Count 288 (140-440) K/mm3 Lymph % (Auto) 4.0 L (13.4-35.0) % Bertie % (Auto) 8.2 H (0.0-7.3) % Eos % (Auto) 0.0 (0.0-4.3) % Baso % (Auto) 0.1 (0.0-1.8) % Lymph # (Auto) 0.4 L (1.2-5.4) K/mm3 Bertie # (Auto) 0.8 (0.0-0.8) K/mm3 Eos # (Auto) 0.0 (0.0-0.4) K/mm3 Baso # (Auto) 0.0 (0.0-0.1) K/mm3 Seg Neutrophils % 87.7 H (40.0-70.0) % Seg Neutrophils # 8.6 H (1.8-7.7) K/mm3 Sodium 137 (137-145) mmol/L Potassium 4.0 (3.6-5.0) mmol/L Chloride 101.5 (98-107) mmol/L Carbon Dioxide 23 (22-30) mmol/L Anion Gap 17 mmol/L BUN 14 (7-17) mg/dL Creatinine 0.7 (0.6-1.2) mg/dL Estimated GFR > 60 ml/min BUN/Creatinine Ratio 20 % Glucose 95 (65-100) mg/dL Lactic Acid 1.90 (0.7-2.0) mmol/L Calcium 9.8 (8.4-10.2) mg/dL Total Bilirubin 0.60 (0.1-1.2) mg/dL AST 16 (5-40) units/L ALT 10 (7-56) units/L Alkaline Phosphatase 73 (35-129) units/L Total Protein 7.8 (6.3-8.2) g/dL Albumin 4.6 (3.9-5) g/dL Albumin/Globulin Ratio 1.4 % HCG, Qual (Negative) 05/28/21 Range/Units 13:56 WBC (4.5-11.0) K/mm3 RBC (3.65-5.03) M/mm3 Hgb (10.1-14.3) gm/dl Hct (30.3-42.9) % MCV (79-97) fl MCH (28-32) pg MCHC (30-34) % RDW (13.2-15.2) % Plt Count (140-440) K/mm3 Lymph % (Auto) (13.4-35.0) % Bertie % (Auto) (0.0-7.3) % Eos % (Auto) (0.0-4.3) % Baso % (Auto) (0.0-1.8) % Lymph # (Auto) (1.2-5.4) K/mm3 Bertie # (Auto) (0.0-0.8) K/mm3 Eos # (Auto) (0.0-0.4) K/mm3 Baso # (Auto) (0.0-0.1) K/mm3 Seg Neutrophils % (40.0-70.0) % Seg Neutrophils # (1.8-7.7) K/mm3 Sodium (137-145) mmol/L Potassium (3.6-5.0) mmol/L Chloride (98-107) mmol/L Carbon Dioxide (22-30) mmol/L Anion Gap mmol/L BUN (7-17) mg/dL Creatinine (0.6-1.2) mg/dL Estimated GFR ml/min BUN/Creatinine Ratio % Glucose (65-100) mg/dL Lactic Acid (0.7-2.0) mmol/L Calcium (8.4-10.2) mg/dL Total Bilirubin (0.1-1.2) mg/dL AST (5-40) units/L ALT (7-56) units/L Alkaline Phosphatase (35-129) units/L Total Protein (6.3-8.2) g/dL Albumin (3.9-5) g/dL Albumin/Globulin Ratio % HCG, Qual Negative (Negative) - Medical Decision Making urine not collected pt needs to leave and cannot complete her treatment. She had a family emergency. Repeat vitals show heart rate in the 130s. patient did not complete IV fluids however, there are any signs of sepsis or severe sepsis based on snehal ent's labs. Patient did receive Tylenol and Toradol. I suspect that increased heart rate might be secondary to anxiety and heart rate increase secondary to family emergency however, I am unable to treat and reassess patients. vaginal sample + for trich with clue cells gc/chlamydia pending ekg not performed prior to leaving department Patient received azithromycin, Flagyl, and IM Rocephin ordered. pt signed out to leave AGAINST MEDICAL ADVICE given persistent tachycardia and incomplete treatment Discharge meds will be provided for gonorrhea and chlamydia Critical Care Time: No Critical care attestation.: If time is entered above; I have spent that time in minutes in the direct care of this critically ill patient, excluding procedure time. ED Disposition Clinical Impression: Fever, Trichomonas infection, STD (female), Tachycardia Disposition: LEFT AGAINST MEDICAL ADVICE Is pt being admited?: No Does the pt Need Aspirin: No Condition: Stable Instructions: Chlamydia, Female, [id number], Trichomoniasis, Gonorrhea, Sinus Tachycardia, Palpitations Additional Instructions: Take the medication as prescribed. Follow-up with your doctor or doctor/clinic provided. Return if symptoms worsen as indicated by your discharge instruction s. Your gonorrhea and Chlamydia tests have been sent and take 2-3 days to result. You may obtain your results by going to medical records with your photo ID or your follow-up physician may request the results be sent to his or her office with your written permission. You have been treated for gonorrhea, chlamydia, and trichomonas with the medications provided here today and your prescriptions. Please continue medications until they are finished to ensure that you are fully treated. Please instruct your sexual partners will also be treated Prescriptions: Doxycycline Hyclate [Doxycycline Hyclate TAB] 100 mg PO Q12HR #28 tab metroNIDAZOLE [Flagyl] 500 mg PO Q12HR #14 tab Ibuprofen [Motrin] 600 mg PO Q8H PRN #20 tablet PRN Reason: Pain , Severe (7-10) Referrals: PRIMARY CARE, [Primary Care Provider] - 3-5 Days LISA GARZA MD [Staff Physician] - 3-5 Days (tanker serviceman ) [facility] [Provider Group] - 3-5 Days (primary care doctor ) Forms: STI Treatment and Prevention, AMA Form Time of Disposition: 15:48
[2021-05-28 14:26] LABS: Basophils % (Auto) 0.1 % (0.0-1.8); Hematocrit 40.2 % (30.3-42.9); Hemoglobin 12.7 gm/dl (10.1-14.3); Lymphocytes # (Auto) 0.4 K/mm3 (1.2-5.4); Mean Corpuscular HGB Conc 32 % (30-34); Mean Corpuscular Volume 81 fl (79-97); Monocytes # (Auto) 0.8 K/mm3 (0.0-0.8); Monocytes % (Auto) 8.2 % (0.0-7.3); Platelet Count 288 K/mm3 (140-440); Red Blood Count 4.95 M/mm3 (3.65-5.03); Red Cell Distribution Width 13.7 % (13.2-15.2)
[2021-05-28] MEDS ORDERED: KETOROLAC 30 MG/1 ML INJ IV ONE (14:34)
[2021-05-28 14:45] LABS: Alanine Aminotransferase 10 units/L (7-56); Albumin 4.6 g/dL (3.9-5); Blood Urea Nitrogen 14 mg/dL (7-17); Calcium 9.8 mg/dL (8.4-10.2); Hemolysis Index 0
[2021-05-28 14:47] LABS: BUN/Creatinine Ratio 20
[2021-05-28] MEDS ORDERED: AZITHROMYCIN 250 MG TAB PO ONE (15:09)
[2021-05-28] MEDS ORDERED: metroNIDAZOLE 500 MG TAB PO ONE (15:10)
[2021-05-28 15:56] VITALS: BP 126/64
[2021-05-28] MEDS ORDERED: LIDOCAINE-MPF (1%) 10 MG/1 ML VIAL 5 ML INFILTRATI ONE (16:04)
== END 2021-05-28 16:45 | disposition left against medical advice (07) ==
LOC: ED 12:39
DX: A64 Unspecified sexually transmitted disease (principal); A59.9 Trichomoniasis, unspecified; I10 Essential (primary) hypertension; E11.9 Type 2 diabetes mellitus without complications
CPT/HCPCS: 36415; 80048; 80053; 82140; 84703; 85025; 87040; 87210; 87591; 96361; 96372; 96374; 99283; J0696; J1885; J3490; J7030; Q0162

== ENCOUNTER 2021-06-23 12:57 | Emergency (ER) | payer OTHER ==
--- NOTE | 2021-06-23 14:00 | Emergency Department Report ---
ED General Adult HPI - General Chief complaint: Chest Pain Stated complaint: PAIN LT AEM /CHEST PAIN Time Seen by Provider: 06/23/21 13:28 Source: patient Mode of arrival: Ambulatory Limitations: No Limitations - History of Present Illness Initial comments: Patient is a 21-year-old female presents emergency room with complaints of left anterior elbow pain that began a couple days ago. She states over the last couple days she is also had some intermittent palpitations which she has had for over a year now. Patient has been worked up in the emergency department previously for her palpitations. She has a history of anxiety. She denies any chest pain, shortness of breath, leg swelling, hemoptysis, calf pain, fever, nausea, vomiting, diarrhea. She denies any fall, injury, numbness, weakness. no allergies to meds. Patient states that she is out of her blood pressure medication and has not been on it for quite some time and she is not sure what she was previously taking. - Related Data Previous Rx's Medication Instructions Recorded Last Taken Type Doxycycline Hyclate [Doxycycline 100 mg PO Q12HR #28 tab 05/28/21 Unknown Rx Hyclate TAB] Ibuprofen [Motrin] 600 mg PO Q8H PRN #20 tablet 05/28/21 Unknown Rx metroNIDAZOLE [Flagyl] 500 mg PO Q12HR #14 tab 05/28/21 Unknown Rx amLODIPine 5 mg PO DAILY #30 tab 06/23/21 Unknown Rx Allergies Allergy/AdvReac Type Severity Reaction Status Date / Time No Known Allergies Allergy Unverified 04/10/21 14:51 ED Review of Systems ROS: Stated complaint: PAIN LT AEM /CHEST PAIN Other details as noted in HPI Comment: All other systems reviewed and negative ED Past Medical Hx - Past Medical History Hx Hypertension: Yes Hx Diabetes: Yes Additional medical history: HEART MUMUR - Surgical History Additional Surgical History: Lt knee - Social History Smoking Status: Never Smoker - Medications Home Medications: Home Medications Medication Instructions Recorded Confirmed Last Taken Type Doxycycline Hyclate [Doxycycline 100 mg PO Q12HR #28 tab 05/28/21 Unknown Rx Hyclate TAB] Ibuprofen [Motrin] 600 mg PO Q8H PRN #20 tablet 05/28/21 Unknown Rx metroNIDAZOLE [Flagyl] 500 mg PO Q12HR #14 tab 05/28/21 Unknown Rx amLODIPine 5 mg PO DAILY #30 tab 06/23/21 Unknown Rx ED Physical Exam - General Limitations: No Limitations General appearance: alert, in no apparent distress - Head Head exam: Present: atraumatic, normocephalic - Eye Eye exam: Present: normal appearance - ENT ENT exam: Present: mucous membranes moist - Respiratory Respiratory exam: Present: normal lung sounds bilaterally. Absent: respiratory distress, wheezes, rales, rhonchi, stridor, chest wall tenderness, accessory muscle use, decreased breath sounds, prolonged expiratory - Cardiovascular Cardiovascular Exam: Present: regular rate, normal rhythm, normal heart sounds. Absent: systolic murmur, diastolic murmur, rubs, gallop - Extremities Exam Extremities exam: Present: other (no bony ttp of the LUE, FROM of the LUE, no deformity, no edema, no skin changes, neurovascularly intact) - Neurological Exam Neurological exam: Present: alert, oriented X3 - Psychiatric Psychiatric exam: Present: normal affect, normal mood - Skin Skin exam: Present: warm, dry, intact ED Course Vital Signs 06/23/21 06/23/21 13:02 14:48 Temperature 97.7 F 98.4 F Pulse Rate 101 H 87 Respiratory 16 20 Rate Blood Pressure 156/91 Blood Pressure 148/89 [Right] O2 Sat by Pulse 100 100 Oximetry ED Medical Decision Making - Lab Data Vital Signs 06/23/21 06/23/21 13:02 14:48 Temperature 97.7 F 98.4 F Pulse Rate 101 H 87 Respiratory 16 20 Rate Blood Pressure 156/91 Blood Pressure 148/89 [Right] O2 Sat by Pulse 100 100 Oximetry - EKG Data EKG shows normal: sinus rhythm, axis, intervals, QRS complexes, ST-T waves Rate: normal - Radiology Data Radiology results: report reviewed Ordering Physician: YESI ZAVALA MD Date of Service: 06/23/21 Procedure(s): XR chest routine 2V Accession Number(s): [id number] cc: YESI ZAVALA MD Fluoro Time In Minutes: CHEST PA AND LATERAL VIEWS INDICATION: chest pain. COMPARISON: 04/03/2021 FINDINGS: Support devices: None. Heart: Within normal limits. Lungs/Pleura: No acute pulmonary or pleural findings. IMPRESSION: 1. No acute findings. Signer Name: Florencio Lopez MD Signed: 06/23/2021 2:12 PM Workstation Name: [id number] Transcribed By: MAG Dictated By: Florencio Lopez MD Electronically Authenticated By: Florencio Lopez MD Signed Date/Time: 06/23/211411 DD/ 11 TD/TT: - Medical Decision Making Patient is a 21-year-old female presents emergency room with complaints of left anterior elbow pain that began a couple days ago. She states over the last couple days she is also had some intermittent palpitations which she has had for over a year now. Patient has been worked up in the emergency department previo usly for her palpitations. She has a history of anxiety. She denies any chest pain, shortness of breath, leg swelling, hemoptysis, calf pain, fever, nausea, vomiting, diarrhea. She denies any fall, injury, numbness, weakness. no allergies to meds. Patient states that she is out of her blood pressure medication and has not been on it for quite some time and she is not sure what she was previously taking. Vitals with elevated blood pressure, otherwise stable. EKG is within normal limits. CXR: 1. No acute findings. EKG with normal heart rate and rhythm. pt had recent workup in the ED for similar symptoms with normal labs, ekg, and cxr. discussed all findings with pt. pt given prescription for amlodipine. advised pt Please take medication as prescribed. Follow-up with your primary care doctor. Eat a low-sodium diet. Incorporate 30-60 minutes of daily exercise. Return to emergency room for any new or worsening symptoms. Critical care attestation.: If time is entered above; I have spent that time in minutes in the direct care of this critically ill patient, excluding procedure time. ED Disposition Clinical Impression: Left arm pain, Palpitations, Elevated blood pressure reading Disposition: HOME / SELF CARE / HOMELESS Is pt being admited?: No Does the pt Need Aspirin: No Condition: Stable Instructions: Palpitations, [id number], Managing Your Hypertension Additional Instructions: Please take medication as prescribed. Follow-up with your primary care doctor. Eat a low-sodium diet. Incorporate 30-60 minutes of daily exercise. Return to emergency room for any new or worsening symptoms. Prescriptions: amLODIPine 5 mg PO DAILY #30 tab Referrals: NANCY CHOI MD [Primary Care Provider] - 3-5 Days CARBUCCIA,JESUS ALBERTO, MD [Staff Physician] - 3-5 Days [facility] [Provider Group] - 3-5 Days Time of Disposition: 14:23 Print Language: UKRAINIAN
--- NOTE | 2021-06-23 14:17 | XRay Report ---
CHEST PA AND LATERAL VIEWS INDICATION: chest pain. COMPARISON: 04/03/2021 FINDINGS: Support devices: None. Heart: Within normal limits. Lungs/Pleura: No acute pulmonary or pleural findings. IMPRESSION: 1. No acute findings. Signer Name: Florencio Lopez MD Signed: 06/23/2021 2:12 PM Workstation Name: [id number]
[2021-06-23 14:49] VITALS: BP 148/89
--- NOTE | 2021-06-24 09:08 | Electrocardiograph Report ---
[facility] Test Date: 2021-06-23 Test Time: 13:06:28 Pat Name: PINKY GÓMEZ Department: Room: Gender: F Manager Protein: JUANA : 2000 Requested By: YESI ZAVALA Order Number: [id number] Reading MD: Idalia Stacy Measurements Intervals [place] Rate: 82 P: 43 MI: 147 QRS: 57 QRSD: 83 T: 18 QT: 359 QTc: 418 Interpretive Statements Sinus rhythm Compared to ECG 04/03/2021 03:09:21 No significant changes Electronically Signed On 06-24-2021 9:08:24 EST by Idalia Stacy
== END 2021-06-23 14:55 | disposition home or self-care (01) ==
LOC: ED 12:57
DX: M25.522 Pain in left elbow (principal); R00.2 Palpitations; E11.9 Type 2 diabetes mellitus without complications; I10 Essential (primary) hypertension; Z79.899 Other long term (current) drug therapy; Z98.890 Other specified postprocedural states
CPT/HCPCS: 71046; 93005; 93010; 99283

== ENCOUNTER 2021-06-28 11:33 | Emergency (ER) | payer OTHER ==
[2021-06-28 11:54] VITALS: BP 135/80
--- NOTE | 2021-06-28 12:35 | Emergency Department Report ---
ED General Adult HPI - General Chief complaint: Abdominal Pain Stated complaint: LOWER BACK PAIN Time Seen by Provider: 06/28/21 11:52 Source: patient Mode of arrival: Ambulatory Limitations: No Limitations - History of Present Illness Initial comments: 21-year-old -[place] female patient presents with complaints of stool changes for the past day. Patient states that her stools were brown in color yesterday and today were dark green. She states she is concerned because she did not eat anything green. She states she has mild generalized abdominal pain. She denies any fever/chills/sweats, nausea/vomiting, dysuria/hematuria/urinary frequency, vaginal discharge, dyspareunia, or past surgical history of the abdomen. She rates her current pain as a 2/10 in severity states it is mild. - Related Data Previous Rx's Medication Instructions Recorded Last Taken Type Doxycycline Hyclate [Doxycycline 100 mg PO Q12HR #28 tab 05/28/21 Unknown Rx Hyclate TAB] Ibuprofen [Motrin] 600 mg PO Q8H PRN #20 tablet 05/28/21 Unknown Rx metroNIDAZOLE [Flagyl] 500 mg PO Q12HR #14 tab 05/28/21 Unknown Rx amLODIPine 5 mg PO DAILY #30 tab 06/23/21 Unknown Rx Allergies Allergy/AdvReac Type Severity Reaction Status Date / Time No Known Allergies Allergy Unverified 04/10/21 14:51 ED Review of Systems ROS: Stated complaint: LOWER BACK PAIN Other details as noted in HPI Constitutional: denies: chills, fever, malaise Respiratory: denies: cough, shortness of breath Cardiovascular: denies: chest pain Gastrointestinal: abdominal pain. denies: nausea, vomiting, diarrhea, constipation, hematemesis, melena, hematochezia Genitourinary: as per HPI Musculoskeletal: denies: back pain ED Past Medical Hx - Past Medical History Previous Medical History?: Yes Hx Hypertension: Yes Hx Diabetes: Yes Additional medical history: HEART MUMUR - Surgical History Past Surgical History?: Yes Additional Surgical History: Lt knee - Social History Smoking Status: Never Smoker - Medications Home Medications: Home Medications Medication Instructions Recorded Confirmed Last Taken Type Doxycycline Hyclate [Doxycycline 100 mg PO Q12HR #28 tab 05/28/21 Unknown Rx Hyclate TAB] Ibuprofen [Motrin] 600 mg PO Q8H PRN #20 tablet 05/28/21 Unknown Rx metroNIDAZOLE [Flagyl] 500 mg PO Q12HR #14 tab 05/28/21 Unknown Rx amLODIPine 5 mg PO DAILY #30 tab 06/23/21 Unknown Rx ED Physical Exam - General Limitations: No Limitations General appearance: alert, in no apparent distress - Head Head exam: Present: atraumatic, normocephalic - Eye Eye exam: Present: normal appearance. Absent: scleral icterus - Respiratory Respiratory exam: Present: normal lung sounds bilaterally. Absent: respiratory distress - Cardiovascular Cardiovascular Exam: Present: regular rate, normal rhythm - GI/Abdominal GI/Abdominal exam: Present: soft, tenderness (Mild generalized), normal bowel sounds. Absent: distended, guarding, rebound, rigid - Neurological Exam Neurological exam: Present: alert, oriented X3, normal gait - Psychiatric Psychiatric exam: Present: normal affect, normal mood - Skin Skin exam: Present: warm, dry, intact, normal color. Absent: rash ED Course Vital Signs 06/28/21 11:48 Temperature 98.6 F Pulse Rate 86 Respiratory 16 Rate Blood Pressure 135/80 O2 Sat by Pulse 100 Oximetry ED Medical Decision Making - Lab Data Result diagrams: 06/28/21 12:40 06/28/21 12:40 - Medical Decision Making 21-year-old -[place] female patient presents with complaints of stool changes for the past day. Patient states that her stools were brown in color yesterday and today were dark green. She states she is concerned because she did not eat anything green. She states she has mild generalized abdominal pain. She denies any fever/chills/sweats, nausea/vomiting, dysuria/hematuria/urinary frequency, vaginal discharge, dyspareunia, or past surgical history of the abdomen. She rates her current pain as a 2/10 in severity states it is mild. Patient eloped prior to lab results and disposition Critical care attestation.: If time is entered above; I have spent that time in minutes in the direct care of this critically ill patient, excluding procedure time. ED Disposition Clinical Impression: Change in stool Disposition: 07 LEFT AWOL/ELOPED Is pt being admited?: No Condition: Stable Instructions: Abdominal Pain (ED)
[2021-06-28 12:51] LABS: Basophils % (Auto) 0.7 % (0.0-1.8); Eosinophils % (Auto) 0.6 % (0.0-4.3); Hematocrit 38.5 % (30.3-42.9); Hemoglobin 12.4 gm/dl (10.1-14.3); Lymphocytes # (Auto) 1.9 K/mm3 (1.2-5.4); Lymphocytes % (Auto) 32.9 % (13.4-35.0); Mean Corpuscular HGB Conc 32 % (30-34); Mean Corpuscular Volume 81 fl (79-97); Monocytes # (Auto) 0.3 K/mm3 (0.0-0.8); Monocytes % (Auto) 5.7 % (0.0-7.3); Platelet Count 309 K/mm3 (140-440); Red Blood Count 4.78 M/mm3 (3.65-5.03); Red Cell Distribution Width 13.9 % (13.2-15.2)
[2021-06-28 13:33] LABS: Alanine Aminotransferase 10 units/L (7-56); Albumin 4.4 g/dL (3.9-5); BUN/Creatinine Ratio 21; Blood Urea Nitrogen 17 mg/dL (7-17); Calcium 9.5 mg/dL (8.4-10.2); Hemolysis Index 3
== END 2021-06-28 23:50 | disposition left against medical advice (07) ==
LOC: ED 11:33
DX: R19.4 Change in bowel habit (principal); E11.9 Type 2 diabetes mellitus without complications; Z79.899 Other long term (current) drug therapy; Z98.890 Other specified postprocedural states
CPT/HCPCS: 36415; 80053; 83690; 84703; 85025; 99282

== ENCOUNTER 2021-06-30 11:31 | Emergency (ER) | payer OTHER ==
[2021-06-30 11:50] VITALS: BP 125/73
--- NOTE | 2021-06-30 12:51 | XRay Report ---
CHEST 2 VIEWS INDICATION / CLINICAL INFORMATION: chest pain left upper chest. COMPARISON: 06/23/21 FINDINGS: SUPPORT DEVICES: None. HEART / MEDIASTINUM: No significant abnormality. LUNGS / PLEURA: No significant pulmonary or pleural abnormality. No pneumothorax. ADDITIONAL FINDINGS: No acute skeletal abnormality. IMPRESSION: 1. No acute findings. No change. Signer Name: Nik Carter MD Signed: 06/30/2021 12:47 PM Workstation Name: [id number]
[2021-06-30 13:34] LABS: Basophils % (Auto) 0.3 % (0.0-1.8); Eosinophils % (Auto) 0.7 % (0.0-4.3); Hematocrit 39.8 % (30.3-42.9); Hemoglobin 12.7 gm/dl (10.1-14.3); Lymphocytes # (Auto) 1.7 K/mm3 (1.2-5.4); Lymphocytes % (Auto) 32.6 % (13.4-35.0); Mean Corpuscular HGB Conc 32 % (30-34); Mean Corpuscular Volume 81 fl (79-97); Monocytes # (Auto) 0.2 K/mm3 (0.0-0.8); Monocytes % (Auto) 4.4 % (0.0-7.3); Platelet Count 320 K/mm3 (140-440); Red Cell Distribution Width 14.1 % (13.2-15.2)
[2021-06-30 13:52] LABS: Alanine Aminotransferase 10 units/L (7-56); Albumin 4.5 g/dL (3.9-5); BUN/Creatinine Ratio 19; Blood Urea Nitrogen 15 mg/dL (7-17); Calcium 9.6 mg/dL (8.4-10.2); Hemolysis Index 8
--- NOTE | 2021-06-30 16:55 | Emergency Department Report ---
ED General Adult HPI - General Chief complaint: Pain General Stated complaint: AB/ANKLE/BACK PAINS Time Seen by Provider: 06/30/21 12:11 Source: patient Mode of arrival: Ambulatory Limitations: No Limitations - History of Present Illness Initial comments: 21-year-old [place] female with a known past history of hypertension however not compliant with the current medication regimen presents emerged department complaining of of back pain to the upper back and left arm and chest and flank pain of unknown etiology. She is worried that due to her noncompliance of medication she may have an issue with her kidneys or her chest states that she talks to her uncle who who educated her on the severity of hypertension went untreated so she went to get her blood pressure medications on yesterday and started taking them. She just want to be evaluated make sure everything was okay due to the feeling she was experiencing -: Gradual Radiation: non-radiation Quality: dull Consistency: constant Improves with: none Worsens with: none Associated Symptoms: denies other symptoms Treatments Prior to Arrival: none - Related Data Previous Rx's Medication Instructions Recorded Last Taken Type Doxycycline Hyclate [Doxycycline 100 mg PO Q12HR #28 tab 05/28/21 Unknown Rx Hyclate TAB] Ibuprofen [Motrin] 600 mg PO Q8H PRN #20 tablet 05/28/21 Unknown Rx metroNIDAZOLE [Flagyl] 500 mg PO Q12HR #14 tab 05/28/21 Unknown Rx amLODIPine 5 mg PO DAILY #30 tab 06/23/21 Unknown Rx Allergies Allergy/AdvReac Type Severity Reaction Status Date / Time No Known Allergies Allergy Verified 06/30/21 11:44 ED Review of Systems ROS: Stated complaint: AB/ANKLE/BACK PAINS Other details as noted in HPI Comment: All other systems reviewed and negative ED Past Medical Hx - Past Medical History Hx Hypertension: Yes Hx Diabetes: Yes Additional medical history: HEART MUMUR - Surgical History Additional Surgical History: Lt knee - Social History Smoking Status: Never Smoker - Medications Home Medications: Home Medications Medication Instructions Recorded Confirmed Last Taken Type Doxycycline Hyclate [Doxycycline 100 mg PO Q12HR #28 tab 05/28/21 Unknown Rx Hyclate TAB] Ibuprofen [Motrin] 600 mg PO Q8H PRN #20 tablet 05/28/21 Unknown Rx metroNIDAZOLE [Flagyl] 500 mg PO Q12HR #14 tab 05/28/21 Unknown Rx amLODIPine 5 mg PO DAILY #30 tab 06/23/21 Unknown Rx ED Physical Exam - General Limitations: No Limitations General appearance: alert, in no apparent distress - Head Head exam: Present: atraumatic, normocephalic - Eye Eye exam: Present: normal appearance, PERRL, EOMI Pupils: Present: normal accommodation - ENT ENT exam: Present: normal exam, normal orophraynx, mucous membranes moist, TM's normal bilaterally - Neck Neck exam: Present: normal inspection, full ROM - Respiratory Respiratory exam: Present: normal lung sounds bilaterally. Absent: respiratory distress, wheezes, rales, rhonchi, accessory muscle use, decreased breath sounds - Cardiovascular Cardiovascular Exam: Present: regular rate, normal rhythm. Absent: systolic murmur, diastolic murmur, rubs, gallop - GI/Abdominal GI/Abdominal exam: Present: soft, normal bowel sounds. Absent: tenderness, guarding, hypoactive bowel sounds, organomegaly, bruit - Extremities Exam Extremities exam: Present: normal inspection, normal capillary refill. Absent: full ROM, pedal edema - Back Exam Back exam: Present: normal inspection, full ROM. Absent: CVA tenderness (R), CVA tenderness (L) - Neurological Exam Neurological exam: Present: alert, oriented X3, CN II-XII intact, normal gait - Psychiatric Psychiatric exam: Present: normal affect, normal mood - Skin Skin exam: Present: warm, dry, intact, normal color. Absent: rash ED Course Vital Signs 06/30/21 11:48 Temperature 98.2 F Pulse Rate 89 Respiratory 18 Rate Blood Pressure 125/73 O2 Sat by Pulse 100 Oximetry ED Medical Decision Making - Lab Data Result diagrams: 06/30/21 12:39 06/30/21 12:39 - Radiology Data Radiology results: report reviewed [facility] [address] [place] [address] XRay Report Signed Patient: PINKY GÓMEZ MR#: [id number] : 2000 Acct:[id number] Age/Sex: 21 / F ADM Date: 06/30/21 Loc: ED Attending Dr: Ordering Physician: JONO DAMON Date of Service: 06/30/21 Procedure(s): XR chest routine 2V Accession Number(s): [id number] cc: JONO DAMON Fluoro Time In Minutes: CHEST 2 VIEWS INDICATION / CLINICAL INFORMATION: chest pain left upper chest. COMPARISON: 06/23/21 FINDINGS: SUPPORT DEVICES: None. HEART / MEDIASTINUM: No significant abnormality. LUNGS / PLEURA: No significant pulmonary or pleural abnormality. No pneumothorax. ADDITIONAL FINDINGS: No acute skeletal abnormality. IMPRESSION: 1. No acute findings. No change. Signer Name: Nik Carter MD Signed: 06/30/2021 12:47 PM Workstation Name: [id number] Transcribed By: DT Dictated By: Philippe Carter MD Electronically Authenticated By: Philippe Carter MD Signed Date/Time: 06/30/211246 DD/ 46 TD/TT: Critical care attestation.: If time is entered above; I have spent that time in minutes in the direct care of this critically ill patient, excluding procedure time. ED Disposition Clinical Impression: Elevated blood pressure reading, Left arm pain Disposition: HOME / SELF CARE / HOMELESS Is pt being admited?: No Does the pt Need Aspirin: No Condition: Stable Instructions: Preventing Hypertension, Hypertension, Adult, Managing Your Hypertension Additional Instructions: Continue taking your blood pressure medication and follow-up with your primary care provider for definitive management of your hypertension You were evaluated emergency department today for chest pain. Your evaluation has shown no medicals conditions requiring emergent intervention at this time, however recommend that you follow-up with your primary care physician or your parts specialist soon as possible for further testing as an outpatient. Please schedule an appointment for follow-up with your primary care physician as soon as possible. Return to emergency department if you expands worsening uncontrolled chest pain, shortness of breath, lightheadedness, feeling faint, nausea, vomiting or any other concerning symptoms. Referrals: NANCY CHOI MD [Primary Care Provider] - 3-5 Days JESUS ALBERTO FULLER MD [Staff Physician] - 3-5 Days
--- NOTE | 2021-07-01 14:35 | Electrocardiograph Report ---
[facility] Test Date: 2021-06-30 Test Time: 14:04:44 Pat Name: PINKY GÓMEZ Department: Room: Gender: F Project Management Advisor: JOHN : 2000 Requested By: WANDA HENSON Order Number: [id number] Reading MD: Tex Boateng Measurements Intervals [place] Rate: 85 P: 45 OR: 150 QRS: 60 QRSD: 84 T: 30 QT: 355 QTc: 423 Interpretive Statements Sinus rhythm Compared to ECG 06/23/2021 13:06:28 No significant changes Electronically Signed On 07-01-2021 14:34:52 EST by Tex Boateng
== END 2021-06-30 17:00 | disposition home or self-care (01) ==
LOC: ED 11:31
DX: M79.602 Pain in left arm (principal); I10 Essential (primary) hypertension; E11.9 Type 2 diabetes mellitus without complications; Z79.899 Other long term (current) drug therapy; Z98.890 Other specified postprocedural states
CPT/HCPCS: 36415; 71046; 80053; 85025; 93005; 93010; 99283

== ENCOUNTER 2021-07-01 12:47 | Emergency (ER) | payer OTHER ==
[2021-07-01 13:36] VITALS: BP 133/68
[2021-07-01] MEDS ORDERED: ASPIRIN 325 MG TAB PO ONE (14:12)
[2021-07-01] MEDS ORDERED: SODIUM CHLORIDE 0.9% 500 ML 500 ML IV ONE (14:12)
--- NOTE | 2021-07-01 14:13 | Emergency Department Report ---
ED Chest Pain HPI - General Chief Complaint: Chest Pain Stated Complaint: CHEST PRESSURE/BACK PAIN Time Seen by Provider: 07/01/21 13:42 Source: patient Mode of arrival: Ambulatory Limitations: No Limitations - History of Present Illness Initial Comments: 21-year-old -L[place] female with a past medical history of hypertension and underlying psych disorder presents to the ER today with complaints of left- sided chest pain. Patient is well-known to the ED with multiple past visits for chest pain. Patient states that the pain started about 6 to 7 days ago. She described as an intermittent pain and described as a pressure type pain. She is unable to describe any modifying factors. It is a nonradiating type of pain. She denies any associated shortness of breath, nausea, vomiting or diaphoresis. She denies any associated abdominal pain, URI symptoms or cough. She states that she did travel to [place] about 2 weeks ago via airplane and was a 3-hour plane ride. She states that she has noticed that she has had some pain in her right calf over the past 2 weeks but no apparent swelling. She denies any fever or chills. She states that she had a murmur when she was a child but otherwise denies any significant cardiac history. She denies family history of heart disease. She denies any history of PE or DVT. She denies alcohol abuse. She does admit to tobacco use. She states that she has never had a stress test. Complaint: chest pain -: days(s) (6-7) Severity scale (0 -10): 0 - Related Data Previous Rx's Medication Instructions Recorded Last Taken Type Doxycycline Hyclate [Doxycycline 100 mg PO Q12HR #28 tab 05/28/21 Unknown Rx Hyclate TAB] Ibuprofen [Motrin] 600 mg PO Q8H PRN #20 tablet 05/28/21 Unknown Rx metroNIDAZOLE [Flagyl] 500 mg PO Q12HR #14 tab 05/28/21 Unknown Rx amLODIPine 5 mg PO DAILY #30 tab 06/23/21 Unknown Rx Allergies Allergy/AdvReac Type Severity Reaction Status Date / Time No Known Allergies Allergy Verified 06/30/21 11:44 Heart Score - HEART Score History: Slightly suspicious EKG: Normal Age: < 45 Risk factors: 1-2 risk factors Troponin: < normal limit HEART Score: 1 - EKG Read Time Time EKG Completed: 14:22 EKG Read Time: 14:25 - Critical Actions Critical Actions: 0-3 pts:0.9-1.7%risk of adverse cardiac event.Candidate for discharge ED Review of Systems ROS: Stated complaint: CHEST PRESSURE/BACK PAIN Other details as noted in HPI ED Past Medical Hx - Past Medical History Previous Medical History?: Yes Hx Hypertension: Yes Hx Diabetes: Yes Additional medical history: HEART MUMUR - Surgical History Past Surgical History?: Yes Additional Surgical History: Lt knee - Social History Smoking Status: Never Smoker - Medications Home Medications: Home Medications Medication Instructions Recorded Confirmed Last Taken Type Doxycycline Hyclate [Doxycycline 100 mg PO Q12HR #28 tab 05/28/21 Unknown Rx Hyclate TAB] Ibuprofen [Motrin] 600 mg PO Q8H PRN #20 tablet 05/28/21 Unknown Rx metroNIDAZOLE [Flagyl] 500 mg PO Q12HR #14 tab 05/28/21 Unknown Rx amLODIPine 5 mg PO DAILY #30 tab 06/23/21 Unknown Rx ED Physical Exam - General Limitations: No Limitations ED Course Vital Signs 07/01/21 13:30 Temperature 98.7 F Pulse Rate 93 H Respiratory 20 Rate Blood Pressure 133/68 [Right] O2 Sat by Pulse 100 Oximetry GARY score - Gary Score Age > 65: (0) No Aspirin use within the Past 7 Days: (0) No 3 or more CAD Risk Factors: (0) No 2 or more Angina events in past 24 hrs: (0) No Known CAD with more than 50% Stenosis: (0) No Elevated Cardiac Markers: (0) No ST Deviation Greater than 0.5mm: (0) No GARY Score: 0 ED Medical Decision Making - Lab Data Result diagrams: 07/01/21 14:52 07/01/21 14:52 - EKG Data EKG shows normal: sinus rhythm Rate: normal (89) - EKG Data Interpretation: normal EKG - Radiology Data Radiology results: report reviewed Patient: PINKY GÓMEZ MR#: [id number] : 2000 Acct:[id number] Age/Sex: 21 / F ADM Date: 07/01/21 Loc: ED Attending Dr: Ordering Physician: MADDIE FUNK Date of Service: 07/01/21 Procedure(s): XR chest routine 2V Accession Number(s): [id number] cc: MADDIE FUNK Fluoro Time In Minutes: XR chest routine 2V INDICATION / CLINICAL INFORMATION: Chest Pain COMPARISON: 06/30/2021 FINDINGS: SUPPORT DEVICES: None. HEART / MEDIASTINUM: No significant abnormality. LUNGS / PLEURA: Lungs are clear. Costophrenic sulci are sharp. No pneumothorax. ADDITIONAL FINDINGS: No significant additional findings. IMPRESSION: 1. No acute findings. Signer Name: Maurice Batista MD Signed: 07/01/2021 2:47 PM Workstation Name: [id number] Transcribed By: GAIL Dictated By: Maurice Batista MD Electronically Authenticated By: Maurice Batista MD Signed Date/Time: 07/01/211446 DD/ 46 TD/TT: Patient: PINKY GÓMEZ MR#: [id number] : 2000 Acct:[id number] Age/Sex: 21 / F ADM Date: 07/01/21 Loc: ED Attending Dr: Ordering Physician: MADDIE FUNK Date of Service: 07/01/21 Procedure(s): VL venous duplex LE RT Accession Number(s): [id number] cc: MADDIE FUNK VL venous duplex LE RT INDICATION / CLINICAL INFORMATION: calf pain. TECHNIQUE: Duplex doppler imaging was performed using venous compression and other maneuvers. COMPARISON: None available. FINDINGS: No venous thrombosis is identified within the visualized extremity vasculature. ADDITIONAL FINDINGS: None. IMPRESSION: 1. No sonographic evidence for DVT in the visualized right lower extremity vasculature. Signer Name: Maurice Batista MD Signed: 07/01/2021 6:00 PM Workstation Name: [id number] Transcribed By: GAIL Dictated By: Maurice Batista MD Electronically Authenticated By: Maurice Batista MD Signed Date/Time: 07/01/211799 DD/ 1800 TD/TT: - Medical Decision Making All labs reviewed, no significant abnormalities on work-up today including a negative troponin. Chest x-ray shows nothing acute. EKG showed normal sinus rhythm with a heart rate of 89 but no STEMI, significant dysrhythmia or acute ischemic changes. Patient is currently observed sitting on a recliner comfortably playing on her phone. She is not in any acute pain or respiratory distress. Her vital signs are stable. She has a heart score currently of 1. She has a PERC score . the exam, diagnostic testing and current condition do not suggest that this patient is having acute myocardial infarction, significant arrhythmia, unstable angina, esophageal perforation, pulmonary embolism, aortic dissection, pneumothorax, severe pneumonia, sepsis or other significant pa thology that would warrant further testing, continued ED treatment, admission or cardiology or other specialist consultation at this time. Discussed all results with patient. Patient will be given referral to primary care doctor for follow-up. Patient was stable at time of discharge. Critical care attestation.: If time is entered above; I have spent that time in minutes in the direct care of this critically ill patient, excluding procedure time. ED Disposition Clinical Impression: Nonspecific chest pain Disposition: HOME / SELF CARE / HOMELESS Is pt being admited?: No Does the pt Need Aspirin: No Condition: Stable Instructions: Nonspecific Chest Pain, Adult Additional Instructions: I recommend that you take Tylenol or ibuprofen for pain. Follow-up with your [facility] care doctor and/or window clerk if your symptoms persist next week. Transit Coach Operator will be listed on your discharge instruction for follow-up. Return to the ER if your symptoms worsens or changes in any way. Referrals: PRIMARY JIMBO, [Primary Care Provider] - 3-5 Days QUIQUE HASSAN MD [Staff Physician] - 3-5 Days EZEQUIEL ESPINOZA MD [Staff Physician] - 3-5 Days (Transit Coach Operator) Time of Disposition: 17:32
--- NOTE | 2021-07-01 14:52 | XRay Report ---
XR chest routine 2V INDICATION / CLINICAL INFORMATION: Chest Pain COMPARISON: 06/30/2021 FINDINGS: SUPPORT DEVICES: None. HEART / MEDIASTINUM: No significant abnormality. LUNGS / PLEURA: Lungs are clear. Costophrenic sulci are sharp. No pneumothorax. ADDITIONAL FINDINGS: No significant additional findings. IMPRESSION: 1. No acute findings. Signer Name: Maurice Batista MD Signed: 07/01/2021 2:47 PM Workstation Name: [id number]
[2021-07-01 15:34] LABS: Hematocrit 38.9 % (30.3-42.9); Hemoglobin 12.4 gm/dl (10.1-14.3); Mean Corpuscular HGB Conc 32 % (30-34); Mean Corpuscular Volume 81 fl (79-97); Platelet Count 315 K/mm3 (140-440); Red Blood Count 4.83 M/mm3 (3.65-5.03); Red Cell Distribution Width 14.3 % (13.2-15.2)
[2021-07-01 15:53] LABS: Alanine Aminotransferase 9 units/L (7-56); Albumin 4.4 g/dL (3.9-5); BUN/Creatinine Ratio 18; Blood Urea Nitrogen 14 mg/dL (7-17); Calcium 9.3 mg/dL (8.4-10.2); Hemolysis Index 0
[2021-07-01 15:58] LABS: Eosinophils % (Auto) 0.5 % (0.0-4.3); Monocytes # (Auto) 0.4 K/mm3 (0.0-0.8); Monocytes % (Auto) 5.7 % (0.0-7.3)
[2021-07-01 16:47] LABS: Basophils % (Manual) 0 % (0.0-1.8); Total Cells Counted 100
[2021-07-01 16:48] LABS: Platelet Estimate Consistent w Auto; RBC Morphology Normal
--- NOTE | 2021-07-01 18:05 | Vascular Lab Report ---
VL venous duplex LE RT INDICATION / CLINICAL INFORMATION: calf pain. TECHNIQUE: Duplex doppler imaging was performed using venous compression and other maneuvers. COMPARISON: None available. FINDINGS: No venous thrombosis is identified within the visualized extremity vasculature. ADDITIONAL FINDINGS: None. IMPRESSION: 1. No sonographic evidence for DVT in the visualized right lower extremity vasculature. Signer Name: Maurice Batista MD Signed: 07/01/2021 6:00 PM Workstation Name: [id number]
== END 2021-07-01 17:50 | disposition home or self-care (01) ==
LOC: ED 12:47
DX: R07.89 Other chest pain (principal); I10 Essential (primary) hypertension; E11.9 Type 2 diabetes mellitus without complications; Z79.899 Other long term (current) drug therapy; Z98.890 Other specified postprocedural states
CPT/HCPCS: 36415; 71046; 80053; 83690; 84484; 85007; 85025; 93005; 93010; 93971; 99284; J7040; 96360

== ENCOUNTER 2021-07-03 16:43 | Emergency (ER) | payer OTHER ==
--- NOTE | 2021-07-03 18:32 | Event Note ---
ED Screening Note Date of service: 07/03/21 ED Screening Note: pt with hx of blood clots presents with few day history of worsening sob and chest pain. she states that she stopped taking her blood thinners. Denies hemoptysis. This initial assessment/diagnostic orders/clinical plan/treatment(s) is/are subject to change based on patients health status, clinical progression and re- assessment by fellow clinical providers in the ED. Further treatment and workup at subsequent clinical providers discretion. Patient/guardian urged not to elope from the ED as their condition may be serious if not clinically assessed and managed. Initial orders include: cbc, cmp, pt, ptt, cta chest
[2021-07-03 19:13] LABS: Basophils % (Auto) 0.4 % (0.0-1.8); Eosinophils % (Auto) 0.3 % (0.0-4.3); Hematocrit 38.7 % (30.3-42.9); Hemoglobin 12.3 gm/dl (10.1-14.3); Lymphocytes % (Auto) 32.6 % (13.4-35.0); Mean Corpuscular HGB Conc 32 % (30-34); Mean Corpuscular Volume 80 fl (79-97); Monocytes # (Auto) 0.4 K/mm3 (0.0-0.8); Monocytes % (Auto) 4.8 % (0.0-7.3); Platelet Count 327 K/mm3 (140-440); Red Blood Count 4.81 M/mm3 (3.65-5.03); Red Cell Distribution Width 14.4 % (13.2-15.2)
[2021-07-03 19:17] LABS: INR 0.84 (0.87-1.13)
[2021-07-03 19:18] LABS: Partial Thromboplastin Time 32.4 Sec. (24.2-36.6)
[2021-07-03 19:38] LABS: Alanine Aminotransferase 9 units/L (7-56); Albumin 4.3 g/dL (3.9-5); BUN/Creatinine Ratio 23; Blood Urea Nitrogen 18 mg/dL (7-17); Calcium 9.2 mg/dL (8.4-10.2); Hemolysis Index 4
[2021-07-03 20:38] VITALS: BP 137/88
[2021-07-03] MEDS ORDERED: dexAMETHasone 20 MG/5 ML VIAL IV ONE (21:09)
[2021-07-03] MEDS ORDERED: ALBUTEROL 2.5 MG/3 ML NEBU IH ONE (21:09)
--- NOTE | 2021-07-03 21:35 | Emergency Department Report ---
HPI - General Chief Complaint: Chest Pain Time Seen by Provider: 07/03/21 21:15 - HPI HPI: Please note the preceding ED screening note was for a different patient and does not refer to this patient Ms. Linda Mccullough Room 33 The patient is a 21-year-old female present with a chief complaint of chest pain. The patient states for the past 4 to 5 days she has had intermittent substernal chest pressure. Patient denies shortness of breath, nausea/vomiting or diaphoresis with this pain. Patient denies cough or fever. Patient currently denies pain. Patient denies having history of DVTs/PEs in the past ED Past Medical Hx - Past Medical History Previous Medical History?: Yes Hx Hypertension: Yes Hx Diabetes: Yes Additional medical history: HEART MUMUR - Surgical History Past Surgical History?: Yes Additional Surgical History: Lt knee - Family History Family history: no significant - Social History Smoking Status: Current Some Day Smoker Substance Use Type: None (Denies illicit drug use) - Medications Home Medications: Home Medications Medication Instructions Recorded Confirmed Last Taken Type Doxycycline Hyclate [Doxycycline 100 mg PO Q12HR #28 tab 05/28/21 07/03/21 Unknown Rx Hyclate TAB] Ibuprofen [Motrin] 600 mg PO Q8H PRN #20 tablet 05/28/21 07/03/21 Unknown Rx metroNIDAZOLE [Flagyl] 500 mg PO Q12HR #14 tab 05/28/21 07/03/21 Unknown Rx amLODIPine 5 mg PO DAILY #30 tab 06/23/21 07/03/21 Unknown Rx ED Review of Systems ROS: Stated complaint: CHEST PRESSURE Other details as noted in HPI Constitutional: denies: diaphoresis, fever Eyes: denies: eye pain ENT: denies: throat pain Respiratory: denies: shortness of breath Cardiovascular: chest pain Endocrine: no symptoms reported Gastrointestinal: denies: nausea, vomiting Genitourinary: denies: dysuria Musculoskeletal: denies: back pain Neurological: denies: headache Physical Exam - Physical Exam Vital Signs: Vital Signs 07/03/21 07/03/21 20:37 20:41 Temperature 98.5 F Pulse Rate 73 Respiratory 18 Rate Blood Pressure 137/88 [Right] O2 Sat by Pulse 99 99 Oximetry Physical Exam: GENERAL: The patient is well-developed well-nourished female sitting in chair not appearing to be in acute distress. [] HEENT: Normocephalic. Atraumatic. Extraocular motions are intact. Patient has moist mucous membranes. NECK: Supple. Trachea midline CHEST/LUNGS: Clear to auscultation. There is no respiratory distress noted. HEART/CARDIOVASCULAR: Regular. There is no tachycardia. There is no gallop rub or murmur. ABDOMEN: Abdomen is soft, nontender. Patient has normal bowel sounds. There is no abdominal distention. SKIN: There is no rash. There is no edema. There is no diaphoresis. NEURO: The patient is awake, alert, and oriented. The patient is cooperative. The patient has no focal neurologic deficits. The patient has normal speech and gait. GCS 15 MUSCULOSKELETAL: There is no evidence of acute injury. ED Course Vital Signs 07/03/21 07/03/21 20:37 20:41 Temperature 98.5 F Pulse Rate 73 Respiratory 18 Rate Blood Pressure 137/88 [Right] O2 Sat by Pulse 99 99 Oximetry ED Medical Decision Making - Lab Data Result diagrams: 07/03/21 18:52 07/03/21 18:52 Laboratory Tests 07/03/21 07/03/21 07/03/21 18:52 18:52 18:52 WBC 9.1 RBC 4.81 Hgb 12.3 Hct 38.7 MCV 80 MCH 26 L MCHC 32 RDW 14.4 Plt Count 327 Lymph % (Auto) 32.6 [place] % (Auto) 4.8 Eos % (Auto) 0.3 Baso % (Auto) 0.4 Lymph # (Auto) 3.0 [place] # (Auto) 0.4 Eos # (Auto) 0.0 Baso # (Auto) 0.0 Seg Neutrophils % 61.9 Seg Neutrophils # 5.6 PT 12.5 INR 0.84 L APTT 32.4 D-Dimer Sodium 144 Potassium 4.0 Chloride 109.2 H Carbon Dioxide 20 L Anion Gap 19 BUN 18 H Creatinine 0.8 Estimated GFR > 60 BUN/Creatinine Ratio 23 Glucose 111 H Calcium 9.2 Total Bilirubin 0.40 AST 14 ALT 9 Alkaline Phosphatase 68 Troponin T Total Protein 7.5 Albumin 4.3 Albumin/Globulin Ratio 1.3 HCG, Qual 07/03/21 07/03/21 07/03/21 18:52 21:04 21:04 WBC RBC Hgb Hct MCV MCH MCHC RDW Plt Count Lymph % (Auto) [place] % (Auto) Eos % (Auto) Baso % (Auto) Lymph # (Auto) [place] # (Auto) Eos # (Auto) Baso # (Auto) Seg Neutrophils % Seg Neutrophils # PT INR APTT D-Dimer < 135.0 Sodium Potassium Chloride Carbon Dioxide Anion Gap BUN Creatinine Estimated GFR BUN/Creatinine Ratio Glucose Calcium Total Bilirubin AST ALT Alkaline Phosphatase Troponin T < 0.010 Total Protein Albumin Albumin/Globulin Ratio HCG, Qual Negative - EKG Data -: EKG Interpreted by Me EKG shows normal: sinus rhythm Rate: normal - EKG Data When compared to previous EKG there are: previous EKG unavailable Interpretation: nonspecific ST-T wave yamel (T wave inversion lead V3) - Medical Decision Making Patient eloped prior to chest x-ray being ordered - Differential Diagnosis ACS, PE, pericarditis, GERD Critical care attestation.: If time is entered above; I have spent that time in minutes in the direct care of this critically ill patient, excluding procedure time. ED Disposition Clinical Impression: Nonspecific chest pain Disposition: 07 LEFT AWOL/ELOPED Is pt being admited?: No Does the pt Need Aspirin: No Condition: Undetermined Instructions: Nonspecific Chest Pain, Adult Referrals: PRIMARY CARE, [Primary Care Provider] - 3-5 Days Time of Disposition: 23:07 (Patient eloped)
--- NOTE | 2021-07-04 09:59 | Electrocardiograph Report ---
[facility] Test Date: 2021-07-03 Test Time: 21:41:01 Pat Name: PINKY GÓMEZ Department: Room: Gender: F Compounding Pharmacy Technician: KJ : 2000 Requested By: ANIBAL CLIFFORD Order Number: [id number] Reading MD: Reuben Rodriguez Measurements Intervals [place] Rate: 66 P: 54 RI: 153 QRS: 73 QRSD: 90 T: 47 QT: 400 QTc: 421 Interpretive Statements Sinus rhythm Compared to ECG 07/01/2021 14:22:51 No significant changes Electronically Signed On 07-04-2021 9:58:47 EST by Reuben Rodriguez
== END 2021-07-04 18:43 | disposition left against medical advice (07) ==
LOC: ED 16:43
DX: R07.89 Other chest pain (principal); I10 Essential (primary) hypertension; E11.9 Type 2 diabetes mellitus without complications; Z98.890 Other specified postprocedural states; F17.200 Nicotine dependence, unspecified, uncomplicated
CPT/HCPCS: 36415; 80053; 84484; 84703; 85025; 85379; 85610; 85730; 93005; 93010; 99283; J1100

== ENCOUNTER 2021-07-06 18:14 | Emergency (ER) | payer OTHER ==
[2021-07-06 22:08] VITALS: BP 138/92
== END 2021-07-06 22:30 | disposition left against medical advice (07) ==
LOC: ED 18:14
DX: R06.02 Shortness of breath (principal); R42 Dizziness and giddiness; Z53.21 Procedure and treatment not carried out due to patient leaving prior to being seen by health care provider
CPT/HCPCS: 93010

== ENCOUNTER 2021-07-10 17:37 | Emergency (ER) | payer OTHER | END 2021-07-10 21:00 | disposition left against medical advice (07) | LOC: ED 17:37 | DX: R06.02 Shortness of breath (principal); Z53.21 Procedure and treatment not carried out due to patient leaving prior to being seen by health care provider ==

== ENCOUNTER 2021-07-12 09:40 | Emergency (ER) | payer OTHER ==
[2021-07-12 10:10] VITALS: BP 125/72
--- NOTE | 2021-07-12 11:28 | Emergency Department Report ---
ED ENT HPI - General Chief complaint: Skin/Abscess/Foreign Body Stated complaint: CLOGGED THROAT Time Seen by Provider: 07/12/21 11:18 Source: patient Mode of arrival: Ambulatory Limitations: No Limitations - History of Present Illness Initial comments: 21-year-old female who is well-known to this ER and with history of frequent ER visits presents to the ER today with complaints of fullness in her throat. Patient states his symptoms started a couple days ago. She states that she feels like there is something in her throat. She denies any pain. She denies swallowing any foreign body. She denies any runny nose stuffy nose cough. She states that she has tried [id number] medication including Mucinex without much relief. She has no trismus or drooling. She denies any fever or chills. MD complaint: sore throat -: days(s) (2) - Related Data Previous Rx's Medication Instructions Recorded Last Taken Type Doxycycline Hyclate [Doxycycline 100 mg PO Q12HR #28 tab 05/28/21 Unknown Rx Hyclate TAB] Ibuprofen [Motrin] 600 mg PO Q8H PRN #20 tablet 05/28/21 Unknown Rx metroNIDAZOLE [Flagyl] 500 mg PO Q12HR #14 tab 05/28/21 Unknown Rx amLODIPine 5 mg PO DAILY #30 tab 06/23/21 Unknown Rx predniSONE [Deltasone] 20 mg PO BID #10 tab 07/12/21 Unknown Rx Allergies Allergy/AdvReac Type Severity Reaction Status Date / Time No Known Allergies Allergy Verified 07/03/21 20:43 ED Dental HPI - General Chief complaint: Skin/Abscess/Foreign Body Stated complaint: CLOGGED THROAT Time Seen by Provider: 07/12/21 11:18 Source: patient Mode of arrival: Ambulatory Limitations: No Limitations - Related Data Previous Rx's Medication Instructions Recorded Last Taken Type Doxycycline Hyclate [Doxycycline 100 mg PO Q12HR #28 tab 05/28/21 Unknown Rx Hyclate TAB] Ibuprofen [Motrin] 600 mg PO Q8H PRN #20 tablet 05/28/21 Unknown Rx metroNIDAZOLE [Flagyl] 500 mg PO Q12HR #14 tab 05/28/21 Unknown Rx amLODIPine 5 mg PO DAILY #30 tab 06/23/21 Unknown Rx predniSONE [Deltasone] 20 mg PO BID #10 tab 07/12/21 Unknown Rx Allergies Allergy/AdvReac Type Severity Reaction Status Date / Time No Known Allergies Allergy Verified 07/03/21 20:43 ED Review of Systems ROS: Stated complaint: CLOGGED THROAT Other details as noted in HPI Comment: All other systems reviewed and negative Constitutional: denies: chills, fever Eyes: denies: eye pain, eye discharge, vision change ENT: other (fullness in throat). denies: ear pain, throat pain Respiratory: denies: cough, shortness of breath, SOB with exertion, SOB at rest, wheezing Cardiovascular: denies: chest pain, palpitations, dyspnea on exertion, edema, syncope, paroxysmal nocturnal dyspnea Gastrointestinal: denies: abdominal pain, nausea, vomiting, diarrhea, constipation, hematemesis, hematochezia Genitourinary: denies: urgency, dysuria, frequency, hematuria, discharge, abnormal menses, dyspareunia Musculoskeletal: denies: back pain, joint swelling, arthralgia, myalgia Skin: denies: rash, lesions, change in color, change in hair/nails, pruritus Neurological: denies: headache, weakness, numbness, paresthesias, confusion, abnormal gait, vertigo Psychiatric: denies: anxiety, depression, auditory hallucinations, visual cowan llucinations, homicidal thoughts, suicidal thoughts Hematological/Lymphatic: denies: easy bleeding, easy bruising ED Past Medical Hx - Past Medical History Previous Medical History?: Yes Hx Hypertension: Yes Hx Diabetes: Yes Additional medical history: HEART MUMUR - Surgical History Past Surgical History?: Yes Additional Surgical History: Lt knee - Social History Smoking Status: Current Every Day Smoker Substance Use Type: None - Medications Home Medications: Home Medications Medication Instructions Recorded Confirmed Last Taken Type Doxycycline Hyclate [Doxycycline 100 mg PO Q12HR #28 tab 05/28/21 07/03/21 Unknown Rx Hyclate TAB] Ibuprofen [Motrin] 600 mg PO Q8H PRN #20 tablet 05/28/21 07/03/21 Unknown Rx metroNIDAZOLE [Flagyl] 500 mg PO Q12HR #14 tab 05/28/21 07/03/21 Unknown Rx amLODIPine 5 mg PO DAILY #30 tab 06/23/21 07/03/21 Unknown Rx predniSONE [Deltasone] 20 mg PO BID #10 tab 07/12/21 Unknown Rx ED Physical Exam - General Limitations: No Limitations General appearance: alert, in no apparent distress - Head Head exam: Present: atraumatic, normocephalic, normal inspection - Eye Eye exam: Present: normal appearance, PERRL, EOMI Pupils: Present: normal accommodation - ENT ENT exam: Present: normal exam, mucous membranes moist - Expanded ENT Exam Expanded Mouth exam: Present: normal external inspection Teeth exam: Present: normal inspection Throat exam: Positive: tonsillar erythema (mild ), tonsillomegaly (mild), other (uvula normal; airway intact ). Negative: tonsillar exudate, R peritonsillar mass, L peritonsillar mass - Neck Neck exam: Present: normal inspection, full ROM. Absent: meningismus, lymphadenopathy - Respiratory Respiratory exam: Present: normal lung sounds bilaterally. Absent: respiratory distress, wheezes, rales, rhonchi - Cardiovascular Cardiovascular Exam: Present: regular rate, normal rhythm, normal heart sounds - Neurological Exam Neurological exam: Present: alert, oriented X3, CN II-XII intact, normal gait - Psychiatric Psychiatric exam: Present: normal affect, normal mood - Skin Skin exam: Present: intact ED Course Vital Signs 07/12/21 10:09 Temperature 99.0 F Pulse Rate 100 H Respiratory 18 Rate Blood Pressure 125/72 O2 Sat by Pulse 98 Oximetry ED Medical Decision Making - Medical Decision Making 21-year-old female who is well-known to this ER and with history of frequent ER visits presents to the ER today with complaints of fullness in her throat. Patient states his symptoms started a couple days ago. She states that she feels like there is something in her throat. She denies any pain. She denies swallowing any foreign body. She denies any runny nose stuffy nose cough. She states that she has tried gpnq-[id number] medication including Mucinex without much relief. She has no trismus or drooling. She denies any fever or chills. 1133: Patient is well-appearing, nontoxic and not in any acute distress. She is not in any respiratory distress. She has no stridor on exam. She has no trismus or drooling. She is controlling her secretions well. She has some mild erythema and mild swelling to tonsills but Physical exam does not show any tonsillar/peritonsillar mass, or any evidence of Colette's angina, peritonsillar abscess or any other acute abnormality warranting any emergent testing at this time. Her vital signs are stable. She will be treated for possible tonsillitis. Patient was stable for discharge. Critical care attestation.: If time is entered above; I have spent that time in minutes in the direct care of this critically ill patient, excluding procedure time. ED Disposition Clinical Impression: Pharyngitis Disposition: HOME / SELF CARE / HOMELESS Is pt being admited?: No Does the pt Need Aspirin: No Condition: Stable Instructions: Pharyngitis, [id number]-[id number] Additional Instructions: Take the prednisone as prescribed and to completion. Follow up with you PCP this week or next week. Return to ED if worse Prescriptions: predniSONE [Deltasone] 20 mg PO BID #10 tab Referrals: KALEE PLASENCIA MD [Referring] - 3-5 Days Time of Disposition: 11:28
== END 2021-07-12 11:44 | disposition home or self-care (01) ==
LOC: ED 09:40
DX: J02.9 Acute pharyngitis, unspecified (principal); I10 Essential (primary) hypertension; E11.9 Type 2 diabetes mellitus without complications; Z98.890 Other specified postprocedural states; F17.200 Nicotine dependence, unspecified, uncomplicated
CPT/HCPCS: 99282

== ENCOUNTER 2021-07-14 14:33 | Emergency (ER) | payer OTHER ==
[2021-07-14 15:16] VITALS: BP 126/60
--- NOTE | 2021-07-14 18:17 | Emergency Department Report ---
ED General Adult HPI - General Chief complaint: Pain General Stated complaint: CLOGGED THROAT Time Seen by Provider: 07/14/21 16:23 Source: patient Mode of arrival: Ambulatory Limitations: No Limitations - History of Present Illness Initial comments: 21-year-old -Fijian female patient presents with complaints of continued throat pain. Patient was seen here 2 days ago for the same and states the prednisone prescribed is not helping. She denies any fever/chills/sweats, cough, chest pain, nausea/vomiting, or difficulty swallowing. She states pain worsens with swallowing. Patient is well-known to ED and has frequent visits -: Sudden Severity scale (0 -10): 0 - Related Data Previous Rx's Medication Instructions Recorded Last Taken Type Doxycycline Hyclate [Doxycycline 100 mg PO Q12HR #28 tab 05/28/21 Unknown Rx Hyclate TAB] Ibuprofen [Motrin] 600 mg PO Q8H PRN #20 tablet 05/28/21 Unknown Rx metroNIDAZOLE [Flagyl] 500 mg PO Q12HR #14 tab 05/28/21 Unknown Rx amLODIPine 5 mg PO DAILY #30 tab 06/23/21 Unknown Rx predniSONE [Deltasone] 20 mg PO BID #10 tab 07/12/21 Unknown Rx Amoxicillin [Trimox CAP] 500 mg PO BID 10 Days #20 capsule 07/14/21 Unknown Rx Allergies Allergy/AdvReac Type Severity Reaction Status Date / Time No Known Allergies Allergy Verified 07/14/21 15:14 ED Review of Systems ROS: Stated complaint: CLOGGED THROAT Other details as noted in HPI Constitutional: denies: chills, fever, malaise, weakness ENT: throat pain Respiratory: denies: cough Cardiovascular: denies: chest pain Neurological: denies: headache ED Past Medical Hx - Past Medical History Hx Hypertension: Yes Hx Diabetes: Yes Additional medical history: HEART MUMUR - Surgical History Additional Surgical History: Lt knee - Social History Smoking Status: Current Every Day Smoker Substance Use Type: None - Medications Home Medications: Home Medications Medication Instructions Recorded Confirmed Last Taken Type Doxycycline Hyclate [Doxycycline 100 mg PO Q12HR #28 tab 05/28/21 07/03/21 Unknown Rx Hyclate TAB] Ibuprofen [Motrin] 600 mg PO Q8H PRN #20 tablet 05/28/21 07/03/21 Unknown Rx metroNIDAZOLE [Flagyl] 500 mg PO Q12HR #14 tab 05/28/21 07/03/21 Unknown Rx amLODIPine 5 mg PO DAILY #30 tab 06/23/21 07/03/21 Unknown Rx predniSONE [Deltasone] 20 mg PO BID #10 tab 07/12/21 Unknown Rx Amoxicillin [Trimox CAP] 500 mg PO BID 10 Days #20 capsule 07/14/21 Unknown Rx ED Physical Exam - General Limitations: No Limitations General appearance: alert, in no apparent distress - Head Head exam: Present: atraumatic, normocephalic - Eye Eye exam: Present: normal appearance - ENT ENT exam: Present: normal exam, normal orophraynx - Neck Neck exam: Present: lymphadenopathy (mild anterior cervical ) - Respiratory Respiratory exam: Present: normal lung sounds bilaterally. Absent: respiratory distress - Cardiovascular Cardiovascular Exam: Present: regular rate, normal rhythm - Neurological Exam Neurological exam: Present: alert, oriented X3 - Psychiatric Psychiatric exam: Present: normal affect, normal mood - Skin Skin exam: Present: warm, dry, intact, normal color. Absent: rash ED Course Vital Signs 07/14/21 15:15 Temperature 99.8 F H Pulse Rate 94 H Respiratory 18 Rate Blood Pressure 126/60 [Right] O2 Sat by Pulse 97 Oximetry ED Medical Decision Making - Medical Decision Making Given her worsening of symptoms now with low-grade temp of 99.8, will treat for strep with Amoxil. Recommend follow-up with primary care in 3 to 5 days. She is otherwise well-appearing, her vitals are within normal limits, she is stable discharge home. Discussed signs and symptoms that should prompt immediate return to the ED with patient who verbalized understanding Critical care attestation.: If time is entered above; I have spent that time in minutes in the direct care of this critically ill patient, excluding procedure time. ED Disposition Clinical Impression: Acute pharyngitis Disposition: HOME / SELF CARE / HOMELESS Is pt being admited?: No Condition: Stable Instructions: Strep Throat, Adult, [id number] Prescriptions: Amoxicillin [Trimox CAP] 500 mg PO BID 10 Days #20 capsule Referrals: PRIMARY CARE, [Primary Care Provider] - 3-5 Days
== END 2021-07-14 19:52 | disposition home or self-care (01) ==
LOC: ED 14:33
DX: J02.9 Acute pharyngitis, unspecified (principal); I10 Essential (primary) hypertension; E11.9 Type 2 diabetes mellitus without complications; F17.200 Nicotine dependence, unspecified, uncomplicated
CPT/HCPCS: 87116; 87430; 99283

== ENCOUNTER 2021-07-27 23:55 | Emergency (ER) | payer OTHER ==
[2021-07-28 03:27] LABS: Basophils # (Auto) 0.1 K/mm3 (0.0-0.1); Eosinophils # (Auto) 0.1 K/mm3 (0.0-0.4); Eosinophils % (Auto) 0.9 % (0.0-4.3); Hematocrit 37.2 % (30.3-42.9); Hemoglobin 12.4 gm/dl (10.1-14.3); Lymphocytes # (Auto) 3.9 K/mm3 (1.2-5.4); Lymphocytes % (Auto) 38.3 % (13.4-35.0); Mean Corpuscular HGB Conc 33 % (30-34); Mean Corpuscular Volume 80 fl (79-97); Monocytes # (Auto) 0.6 K/mm3 (0.0-0.8); Monocytes % (Auto) 5.6 % (0.0-7.3); Platelet Count 315 K/mm3 (140-440); Red Blood Count 4.63 M/mm3 (3.65-5.03); Red Cell Distribution Width 14.3 % (13.2-15.2)
[2021-07-28 03:32] LABS: Alanine Aminotransferase 9 units/L (7-56); Albumin 4.2 g/dL (3.9-5); BUN/Creatinine Ratio 34; Bilirubin,Direct < 0.2 mg/dL (0-0.2); Blood Urea Nitrogen 24 mg/dL (7-17); Calcium 9.7 mg/dL (8.4-10.2); Hemolysis Index 12
[2021-07-28 07:06] VITALS: BP 132/77
== END 2021-07-28 07:07 | disposition home or self-care (01) ==
LOC: ED 23:55
DX: E86.0 Dehydration (principal); Z53.21 Procedure and treatment not carried out due to patient leaving prior to being seen by health care provider
CPT/HCPCS: 36415; 80053; 80076; 82150; 83690; 85025; 99283

== ENCOUNTER 2021-07-30 13:31 | Emergency (ER) | payer OTHER ==
--- NOTE | 2021-07-30 16:44 | XRay Report ---
XR chest routine 2V INDICATION / CLINICAL INFORMATION: palpitations. COMPARISON: 07/01/2021 FINDINGS: SUPPORT DEVICES: None. HEART /PULMONARY VASCULATURE: No significant abnormality. LUNGS / PLEURA: No significant pulmonary or pleural abnormality. No pneumothorax. ADDITIONAL FINDINGS: No significant additional findings. IMPRESSION: 1. No acute findings. Signer Name: Jim Bullard MD Signed: 07/30/2021 4:39 PM Workstation Name: [id number]
--- NOTE | 2021-07-30 17:48 | Emergency Department Report ---
ED General Adult HPI - General Chief complaint: Dyspnea/Respdistress Stated complaint: SOB, TIGHTNESS IN CHEST Time Seen by Provider: 07/30/21 16:02 Source: patient Mode of arrival: Ambulatory Limitations: No Limitations - History of Present Illness Initial comments: Patient presents with chest palpitations, tightness, and shortness of breath. This has been ongoing for several months now. She has no cough or congestion. There is no recent travel or trauma. There is no travel or trauma that preceded her symptoms for "a minute." Patient denies caffeine use. She came in for evaluation treatment because she was not feeling well. This happens primarily at night and primarily when she is trying to lay down. Symptoms are not exertional. She does not have symptoms when she is sitting upright. Currently, she states that she feels well. - Related Data Previous Rx's Medication Instructions Recorded Last Taken Type Doxycycline Hyclate [Doxycycline 100 mg PO Q12HR #28 tab 05/28/21 Unknown Rx Hyclate TAB] Ibuprofen [Motrin] 600 mg PO Q8H PRN #20 tablet 05/28/21 Unknown Rx metroNIDAZOLE [Flagyl] 500 mg PO Q12HR #14 tab 05/28/21 Unknown Rx amLODIPine 5 mg PO DAILY #30 tab 06/23/21 Unknown Rx predniSONE [Deltasone] 20 mg PO BID #10 tab 07/12/21 Unknown Rx Amoxicillin [Trimox CAP] 500 mg PO BID 10 Days #20 capsule 07/14/21 Unknown Rx Allergies Allergy/AdvReac Type Severity Reaction Status Date / Time No Known Allergies Allergy Verified 07/30/21 14:39 ED Review of Systems ROS: Stated complaint: SOB, TIGHTNESS IN CHEST Other details as noted in HPI Comment: All other systems reviewed and negative Constitutional: denies: fever Eyes: denies: vision change ENT: denies: epistaxis Respiratory: denies: cough Cardiovascular: as per HPI Endocrine: denies: unexplained weight loss Gastrointestinal: denies: abdominal pain Genitourinary: denies: dysuria Musculoskeletal: denies: back pain Skin: denies: rash Neurological: denies: headache Hematological/Lymphatic: denies: easy bruising ED Past Medical Hx - Past Medical History Previous Medical History?: Yes Hx Hypertension: Yes Hx Diabetes: Yes (pt states she is unsure if diabetic) Additional medical history: HEART MUMUR - Surgical History Additional Surgical History: Lt knee - Family History Family history: hypertension - Social History Smoking Status: Current Every Day Smoker Substance Use Type: None - Medications Home Medications: Home Medications Medication Instructions Recorded Confirmed Last Taken Type Doxycycline Hyclate [Doxycycline 100 mg PO Q12HR #28 tab 05/28/21 07/03/21 Unknown Rx Hyclate TAB] Ibuprofen [Motrin] 600 mg PO Q8H PRN #20 tablet 05/28/21 07/03/21 Unknown Rx metroNIDAZOLE [Flagyl] 500 mg PO Q12HR #14 tab 05/28/21 07/03/21 Unknown Rx amLODIPine 5 mg PO DAILY #30 tab 06/23/21 07/03/21 Unknown Rx predniSONE [Deltasone] 20 mg PO BID #10 tab 07/12/21 Unknown Rx Amoxicillin [Trimox CAP] 500 mg PO BID 10 Days #20 capsule 07/14/21 Unknown Rx ED Physical Exam - General Limitations: No Limitations, Other (Pulse ox noted and normal) General appearance: alert, in no apparent distress - Head Head exam: Present: atraumatic, normocephalic - Eye Eye exam: Present: normal appearance, PERRL, EOMI - ENT ENT exam: Present: normal orophraynx, normal external ear exam - Neck Neck exam: Present: normal inspection. Absent: meningismus - Respiratory Respiratory exam: Present: normal lung sounds bilaterally. Absent: respiratory distress - Cardiovascular Cardiovascular Exam: Present: regular rate - GI/Abdominal GI/Abdominal exam: Present: soft. Absent: distended, tenderness - Extremities Exam Extremities exam: Present: normal capillary refill. Absent: calf tenderness - Back Exam Back exam: Absent: CVA tenderness (R), CVA tenderness (L) - Neurological Exam Neurological exam: Present: alert, oriented X3, CN II-XII intact, normal gait. Absent: motor sensory deficit - Psychiatric Psychiatric exam: Present: normal affect, normal mood - Skin Skin exam: Present: warm, dry ED Course Vital Signs 07/30/21 14:33 Temperature 98.3 F Pulse Rate 79 Respiratory 14 Rate Blood Pressure 117/71 O2 Sat by Pulse 98 Oximetry - Reevaluation(s) Reevaluation #1: 07/30/21 17:48 X-ray was noted. EKG was noted. Patient was discharged. ED Medical Decision Making - EKG Data -: EKG Interpreted by Me - EKG Data 07/30/21 17:48 EKG shows normal sinus rhythm with normal intervals. Patient has a normal QRS and QT corrected. There is no ST elevation to suggest infarct. There is no ischemic change. There is no ectopy noted. - Radiology Data Radiology results: report reviewed - Medical Decision Making Patient presents with several month of shortness of breath and palpitations. She may benefit from Holter monitor. There was no evidence of dysrhythmia here. She certainly had no risk factors for ACS. Patient had no risk factor for pulmonary embolism and was not hypoxic or tachycardic. There was no radiogra phic evidence of cardiomegaly. She did not have pneumonia or pneumothorax. There is no pulse deficit suggestive of aortic dissection. Critical Care Time: No Critical care attestation.: If time is entered above; I have spent that time in minutes in the direct care of this critically ill patient, excluding procedure time. ED Disposition Clinical Impression: Palpitations, Shortness of breath Disposition: 01 HOME / SELF CARE / HOMELESS Is pt being admited?: No Condition: Stable Instructions: Shortness of Breath, Adult, [id number], Palpitations, Rrbr-[id number]-Gmbp Additional Instructions: Drink plenty of water. Avoid caffeine. Return for problems. Follow-up with your family doctor or the referral doctor to consider and discuss Holter monitor. Referrals: PRIMARY CAREMD [Referring] - 3-5 Days RUBI PLASENCIA MD [Staff Physician] - 3-5 Days
[2021-07-30 18:15] VITALS: BP 126/67
--- NOTE | 2021-07-31 10:27 | Electrocardiograph Report ---
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
== END 2021-07-30 18:14 | disposition home or self-care (01) ==
LOC: ED 13:31
DX: R00.2 Palpitations (principal); R06.02 Shortness of breath; F17.200 Nicotine dependence, unspecified, uncomplicated; I10 Essential (primary) hypertension; E11.9 Type 2 diabetes mellitus without complications
CPT/HCPCS: 71046; 93005; 99283

== ENCOUNTER 2021-08-02 17:14 | Emergency (ER) | payer OTHER ==
[2021-08-02 17:27] VITALS: BP 132/78
== END 2021-08-03 10:52 | disposition left against medical advice (07) ==
LOC: ED 17:14
DX: J02.9 Acute pharyngitis, unspecified (principal); Z53.21 Procedure and treatment not carried out due to patient leaving prior to being seen by health care provider

== ENCOUNTER 2021-08-26 11:11 | Emergency (ER) | payer OTHER ==
[2021-08-26] MEDS ORDERED: ONDANSETRON 4 MG ODT TAB PO ONE (16:20)
--- NOTE | 2021-08-26 16:20 | Emergency Department Report ---
ED General Adult HPI - General Chief complaint: Nausea/Vomiting/Diarrhea Stated complaint: LIGHT HEADED Time Seen by Provider: 08/26/21 15:31 Source: patient Mode of arrival: Ambulatory Limitations: No Limitations - History of Present Illness Initial comments: 21-year-old -French female patient well-known to this ED presents with complaints of nausea this morning. Patient states she drank alcohol last night and woke up with a hangover. She states when she drinks water it makes her stomach nauseous. She denies any abdominal pain, vomiting, diarrhea, or fever. - Related Data Previous Rx's Medication Instructions Recorded Last Taken Type Doxycycline Hyclate [Doxycycline 100 mg PO Q12HR #28 tab 05/28/21 Unknown Rx Hyclate TAB] Ibuprofen [Motrin] 600 mg PO Q8H PRN #20 tablet 05/28/21 Unknown Rx metroNIDAZOLE [Flagyl] 500 mg PO Q12HR #14 tab 05/28/21 Unknown Rx amLODIPine 5 mg PO DAILY #30 tab 06/23/21 Unknown Rx predniSONE [Deltasone] 20 mg PO BID #10 tab 07/12/21 Unknown Rx Amoxicillin [Trimox CAP] 500 mg PO BID 10 Days #20 capsule 07/14/21 Unknown Rx Ondansetron [Zofran Odt] 4 mg PO Q8HR PRN #8 tab.rapdis 08/26/21 Unknown Rx Allergies Allergy/AdvReac Type Severity Reaction Status Date / Time No Known Allergies Allergy Verified 07/30/21 14:39 ED Review of Systems ROS: Stated complaint: LIGHT HEADED Other details as noted in HPI Constitutional: denies: chills, fever, malaise, weakness Respiratory: denies: cough Cardiovascular: denies: chest pain Gastrointestinal: nausea. denies: abdominal pain, vomiting, diarrhea Genitourinary: denies: as per HPI, dysuria, frequency, hematuria Neurological: denies: headache ED Past Medical Hx - Past Medical History Hx Hypertension: Yes Hx Diabetes: Yes (pt states she is unsure if diabetic) Additional medical history: HEART MUMUR - Surgical History Additional Surgical History: Lt knee - Social History Smoking Status: Current Every Day Smoker Substance Use Type: None - Medications Home Medications: Home Medications Medication Instructions Recorded Confirmed Last Taken Type Doxycycline Hyclate [Doxycycline 100 mg PO Q12HR #28 tab 05/28/21 07/03/21 Unknown Rx Hyclate TAB] Ibuprofen [Motrin] 600 mg PO Q8H PRN #20 tablet 05/28/21 07/03/21 Unknown Rx metroNIDAZOLE [Flagyl] 500 mg PO Q12HR #14 tab 05/28/21 07/03/21 Unknown Rx amLODIPine 5 mg PO DAILY #30 tab 06/23/21 07/03/21 Unknown Rx predniSONE [Deltasone] 20 mg PO BID #10 tab 07/12/21 Unknown Rx Amoxicillin [Trimox CAP] 500 mg PO BID 10 Days #20 capsule 07/14/21 Unknown Rx Ondansetron [Zofran Odt] 4 mg PO Q8HR PRN #8 tab.rapdis 08/26/21 Unknown Rx ED Physical Exam - General Limitations: No Limitations General appearance: alert, in no apparent distress - Head Head exam: Present: atraumatic, normocephalic - Eye Eye exam: Present: normal appearance. Absent: scleral icterus - Neck Neck exam: Present: normal inspection - Respiratory Respiratory exam: Absent: respiratory distress - Cardiovascular Cardiovascular Exam: Present: regular rate - GI/Abdominal GI/Abdominal exam: Present: soft. Absent: tenderness - Neurological Exam Neurological exam: Present: alert, oriented X3 - Psychiatric Psychiatric exam: Present: normal affect, normal mood - Skin Skin exam: Present: warm, dry, intact, normal color. Absent: rash ED Course Vital Signs 08/26/21 11:44 Temperature 98.4 F Pulse Rate 90 Respiratory 16 Rate Blood Pressure 133/86 O2 Sat by Pulse 99 Oximetry ED Medical Decision Making - Medical Decision Making 21-year-old -French female patient well-known to this ED presents with complaints of nausea this morning. Patient states she drank alcohol last night and woke up with a hangover. She states when she drinks water it makes her stomach nauseous. She denies any abdominal pain, vomiting, diarrhea, or fever. Exam is normal. Zofran given for nausea. Recommend Pedialyte and soft food diet today. Patient to follow-up with her primary care doctor as needed. Strict return precautions discussed in detail patient verbalized Critical care attestation.: If time is entered above; I have spent that time in minutes in the direct care of this critically ill patient, excluding procedure time. ED Disposition Clinical Impression: Nausea Disposition: 01 HOME / SELF CARE / HOMELESS Is pt being admited?: No Condition: Stable Instructions: Nausea, Adult, [id number] Prescriptions: Ondansetron [Zofran Odt] 4 mg PO Q8HR PRN #8 tab.rapdis PRN Reason: Nausea Referrals: JESUS ALBERTO FULLER MD [Primary Care Provider] - 3-5 Days
[2021-08-26 16:41] VITALS: BP 139/70
== END 2021-08-26 16:42 | disposition home or self-care (01) ==
LOC: ED 11:11
DX: R11.0 Nausea (principal); I10 Essential (primary) hypertension; E11.9 Type 2 diabetes mellitus without complications; Z98.890 Other specified postprocedural states; F17.200 Nicotine dependence, unspecified, uncomplicated
CPT/HCPCS: 99282; J3490; Q0162

== ENCOUNTER 2021-08-30 14:24 | Emergency (ER) | payer OTHER | END 2021-08-30 17:25 | disposition left against medical advice (07) | LOC: ED 14:24 | DX: R06.02 Shortness of breath (principal); Z53.21 Procedure and treatment not carried out due to patient leaving prior to being seen by health care provider ==

== ENCOUNTER 2021-09-03 09:00 | Emergency (ER) | payer OTHER ==
[2021-09-03 15:03] LABS: Bacteria,Urine 4+ /HPF (Negative); Bilirubin,Urine NEG (Negative); Blood,Urine NEG (Negative); Color,Urine Yellow (Yellow); Hyaline Casts,Urine 1 /LPF; Mucus,Urine FEW /HPF; Protein,Urine <15 mg/dL mg/dL (Negative); Urobilinogen,Urine < 2.0 mg/dL (<2.0)
[2021-09-03 15:07] LABS: HCG Qualitative,Urine Negative (Negative)
--- NOTE | 2021-09-03 15:38 | XRay Report ---
CHEST 2 VIEWS INDICATION / CLINICAL INFORMATION: Shortness of breath. COMPARISON: 07/30/21. FINDINGS: SUPPORT DEVICES: None. HEART / MEDIASTINUM: The heart size and pulmonary vasculature are normal. LUNGS / PLEURA: No significant pulmonary or pleural abnormality. No pneumothorax. ADDITIONAL FINDINGS: No significant additional findings. IMPRESSION: No acute abnormality or significant change. Signer Name: Priyank Boggs MD Signed: 09/03/2021 3:34 PM Workstation Name: [id number]
--- NOTE | 2021-09-03 15:56 | Emergency Department Report ---
ED Shortness of Breath HPI - General Chief Complaint: Abdominal Pain Stated Complaint: SOB/KIDNEY PAIN Time Seen by Provider: 09/03/21 12:35 Source: patient Mode of arrival: Ambulatory Limitations: No Limitations - History of Present Illness Initial Comments: 21-year-old black female with a past medical history of hypertension presents to the emergency department for evaluation of inability to sleep for the past 2 nights secondary to shortness of breath along with chest pain and nausea. She states that she has sharp pain to the left chest that is 8 out of 10. Pain worse with palpation and nonradiating. She states that she feels short of breath only at night when she is ready to lay down. She denies injury or trauma. MD Complaint: shortness of breath, chest pain, pain with inspiration -: Gradual, days(s) (To) Severity: moderate Pain Scale: 8 Quality: aching Consistency: intermittent Worsens With: movement, other (Palpation) Associated Symptoms: chest pain - Related Data Home Oxygen Therapy: No Previous Rx's Medication Instructions Recorded Last Taken Type Doxycycline Hyclate [Doxycycline 100 mg PO Q12HR #28 tab 05/28/21 Unknown Rx Hyclate TAB] Ibuprofen [Motrin] 600 mg PO Q8H PRN #20 tablet 05/28/21 Unknown Rx metroNIDAZOLE [Flagyl] 500 mg PO Q12HR #14 tab 05/28/21 Unknown Rx amLODIPine 5 mg PO DAILY #30 tab 06/23/21 Unknown Rx predniSONE [Deltasone] 20 mg PO BID #10 tab 07/12/21 Unknown Rx Amoxicillin [Trimox CAP] 500 mg PO BID 10 Days #20 capsule 07/14/21 Unknown Rx Ondansetron [Zofran Odt] 4 mg PO Q8HR PRN #8 tab.rapdis 08/26/21 Unknown Rx Allergies Allergy/AdvReac Type Severity Reaction Status Date / Time No Known Allergies Allergy Verified 07/30/21 14:39 ED Review of Systems ROS: Stated complaint: SOB/KIDNEY PAIN Other details as noted in HPI Comment: All other systems reviewed and negative Constitutional: denies: chills, fever Eyes: denies: vision change ENT: denies: congestion Respiratory: shortness of breath. denies: cough, SOB with exertion, SOB at rest, wheezing Cardiovascular: chest pain. denies: palpitations, dyspnea on exertion, orthopnea, edema, syncope, paroxysmal nocturnal dyspnea Gastrointestinal: nausea. denies: abdominal pain, vomiting, diarrhea, hematemesis, melena, hematochezia Genitourinary: denies: urgency, dysuria, frequency, hematuria, discharge, abnormal menses Musculoskeletal: denies: back pain Skin: denies: rash, lesions Neurological: denies: headache, weakness, numbness, paresthesias, confusion, abnormal gait ED Past Medical Hx - Past Medical History Hx Hypertension: Yes Hx Diabetes: Yes (pt states she is unsure if diabetic) Additional medical history: HEART MUMUR - Surgical History Additional Surgical History: Lt knee - Social History Smoking Status: Current Every Day Smoker Substance Use Type: None - Medications Home Medications: Home Medications Medication Instructions Recorded Confirmed Last Taken Type Doxycycline Hyclate [Doxycycline 100 mg PO Q12HR #28 tab 05/28/21 07/03/21 Unknown Rx Hyclate TAB] Ibuprofen [Motrin] 600 mg PO Q8H PRN #20 tablet 05/28/21 07/03/21 Unknown Rx metroNIDAZOLE [Flagyl] 500 mg PO Q12HR #14 tab 05/28/21 07/03/21 Unknown Rx amLODIPine 5 mg PO DAILY #30 tab 06/23/21 07/03/21 Unknown Rx predniSONE [Deltasone] 20 mg PO BID #10 tab 07/12/21 Unknown Rx Amoxicillin [Trimox CAP] 500 mg PO BID 10 Days #20 capsule 07/14/21 Unknown Rx Ondansetron [Zofran Odt] 4 mg PO Q8HR PRN #8 tab.rapdis 08/26/21 Unknown Rx ED Physical Exam - General Limitations: No Limitations General appearance: alert, in no apparent distress - Head Head exam: Present: atraumatic, normocephalic - Eye Eye exam: Present: normal appearance. Absent: conjunctival injection - Neck Neck exam: Present: normal inspection. Absent: tenderness - Respiratory Respiratory exam: Present: normal lung sounds bilaterally, chest wall tenderness. Absent: respiratory distress, wheezes, rales, rhonchi, stridor - Cardiovascular Cardiovascular Exam: Present: regular rate, normal heart sounds - GI/Abdominal GI/Abdominal exam: Present: soft, normal bowel sounds. Absent: distended, tenderness, guarding, rebound, rigid - Extremities Exam Extremities exam: Present: normal inspection, normal capillary refill. Absent: tenderness, pedal edema, joint swelling, calf tenderness - Back Exam Back exam: Present: normal inspection. Absent: tenderness, CVA tenderness (R), CVA tenderness (L), paraspinal tenderness, vertebral tenderness - Neurological Exam Neurological exam: Present: alert, oriented X3, normal gait, reflexes normal - Psychiatric Psychiatric exam: Present: normal affect, normal mood - Skin Skin exam: Present: warm, dry, intact, normal color ED Course Vital Signs 09/03/21 09/03/21 09:33 16:58 Temperature 98.4 F Pulse Rate 85 80 Respiratory 18 18 Rate Blood Pressure 140/66 114/81 [Right] O2 Sat by Pulse 98 100 Oximetry ED Medical Decision Making - EKG Data Interpretation: no acute changes - Radiology Data Radiology results: report reviewed, image reviewed Chest x-ray: FINDINGS: SUPPORT DEVICES: None. HEART / MEDIASTINUM: The heart size and pulmonary vasculature are normal. LUNGS / PLEURA: No significant pulmonary or pleural abnormality. No pneumothorax. ADDITIONAL FINDINGS: No significant additional findings. IMPRESSION: No acute abnormality or significant change - Medical Decision Making 21-year-old black female with a past medical history of hypertension presents to the emergency department for evaluation of inability to sleep for the past 2 nights secondary to shortness of breath along with chest pain and nausea. She states that she has sharp pain to the left chest that is 8 out of 10. Pain worse with palpation and nonradiating. She states that she feels short of breath only at night when she is ready to lay down. She denies injury or trauma. EKG without any acute ischemic abnormalities noted. Chest x-ray without any ab normalities. UA negative for urinary tract infection and . Patient denies shortness of breath and chest pain at this time. Patient advised to follow-up with primary care provider for further evaluation and management. She was advised to return to the emergency department for any concerning symptoms. She verbalized understanding of and agreement with plan of care. Critical care attestation.: If time is entered above; I have spent that time in minutes in the direct care of this critically ill patient, excluding procedure time. ED Disposition Clinical Impression: SOB (shortness of breath), Dizziness Chest pain Qualifiers: Chest pain type: unspecified Qualified Code(s): R07.9 - Chest pain, unspecified Disposition: 01 HOME / SELF CARE / HOMELESS Is pt being admited?: No Does the pt Need Aspirin: No Condition: Stable Instructions: Shortness of Breath, Adult, [id number], Nonspecific Chest Pain, Adult, Mamb-yn-[id number], Dizziness, [id number], Abdominal Pain (ED) Additional Instructions: Follow-up with your primary care provider for further evaluation and management. Referrals: JESUS ALBERTO FULLER MD [Primary Care Provider] - 3-5 Days Forms: Work/School Release Form(ED) Time of Disposition: 15:56
[2021-09-03 17:00] VITALS: BP 114/81
--- NOTE | 2021-09-06 19:49 | Electrocardiograph Report ---
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
== END 2021-09-03 17:00 | disposition home or self-care (01) ==
LOC: ED 09:00
DX: R06.02 Shortness of breath (principal); R42 Dizziness and giddiness
CPT/HCPCS: 71046; 81001; 81025; 93005; 99283

== ENCOUNTER 2021-11-17 13:28 | Emergency (ER) | payer OTHER ==
[2021-11-17 13:40] VITALS: BP 123/60
== END 2021-11-17 23:59 ==
LOC: ED 13:28
DX: R10.9 Unspecified abdominal pain (principal); Z53.21 Procedure and treatment not carried out due to patient leaving prior to being seen by health care provider

== ENCOUNTER 2021-12-23 07:26 | Emergency (ER) | payer OTHER ==
[2021-12-23 07:43] VITALS: BP 117/81
== END 2021-12-23 16:28 | disposition left against medical advice (07) ==
LOC: ED 07:26
DX: R07.9 Chest pain, unspecified (principal); Z53.21 Procedure and treatment not carried out due to patient leaving prior to being seen by health care provider

== ENCOUNTER 2022-01-08 19:20 | Emergency (ER) | payer OTHER | END 2022-01-09 09:00 | disposition left against medical advice (07) | LOC: ED 19:20 | DX: R06.02 Shortness of breath (principal); Z53.21 Procedure and treatment not carried out due to patient leaving prior to being seen by health care provider ==

== ENCOUNTER 2022-01-29 15:54 | Emergency (ER) | payer OTHER ==
[2022-01-29 16:02] VITALS: BP 144/84
== END 2022-01-29 22:25 | disposition left against medical advice (07) ==
LOC: ED 15:54
DX: R09.81 Nasal congestion (principal); Z53.21 Procedure and treatment not carried out due to patient leaving prior to being seen by health care provider